=== PATIENT | male | born 1975 | race African-American/Black ===

== ENCOUNTER → 2016-11-03 | Outpatient (CLI) | payer MEDICAID, MEDICARE, OTHER ==
[2016-11-03 11:33] LABS: ALANINE AMINOTRANSFERASE 36 U/L (21-72); ALBUMIN 3.9 g/dL (3.5-5.0); ALKALINE PHOSPHATASE 139 U/L (38-126); ANION GAP 10 (5-19); ASPARTATE AMINO TRANSFERASE 21 U/L (17-59); BILIRUBIN,DIRECT 0.2 mg/dL (0.0-0.4); BILIRUBIN,TOTAL 0.8 mg/dL (0.2-1.3); BLOOD UREA NITROGEN 17 mg/dL (7-20); CALCIUM 9.8 mg/dL (8.4-10.2); CARBON DIOXIDE 32 mmol/L (22-30); CHLORIDE 97 mmol/L (98-107); CHOLESTEROL 140.22 mg/dL (0-200); CREATININE RESULT 1.07 mg/dL (0.52-1.25); Direct HDL 50 mg/dL (>40); GLUCOSE 260 mg/dL (75-110); POTASSIUM 4.2 mmol/L (3.6-5.0); TRIGLYCERIDES 75 mg/dL (<150)
[2016-11-03 11:44] LABS: DIRECT LDL 60 mg/dL (<100)
[2016-11-04 11:39] LABS: CREATININE URINE 85.3 mg/dL (Not Estab.); MICROALBUMIN URINE <3.0 ug/mL (Not Estab.)
== END ==
LOC: CCC 09:50
DX: I10 Essential (primary) hypertension (principal); E11.9 Type 2 diabetes mellitus without complications; E78.5 Hyperlipidemia, unspecified
CPT/HCPCS: 36415; 80053; 80061; 82043; 82570; 83036; 84443

== ENCOUNTER 2016-11-23 10:21 | Emergency (ER) | payer SELFPAY ==
[2016-11-23 10:28] VITALS: BP 133/79
--- NOTE | 2016-11-23 10:46 | ER Document Report ---
ED General - General Chief Complaint: Numbness of Arm Stated Complaint: PAIN/TINGLING LEFT ARM Time Seen by Provider: 11/23/16 10:30 Mode of Arrival: Ambulatory Information source: Patient Notes: This 41-year-old male patient comes emergency room complaining of pain in the left thumb going up the forearm tingling and burning. There is no particular injury. It is been going on for a few days. TRAVEL OUTSIDE OF THE [place] IN LAST 30 DAYS: No - Related Data Allergies/Adverse Reactions: bananas Allergy (Uncoded 11/23/16 10:29) Past Medical History - General Information source: Patient, [facility] Records - Social History Smoking Status: Never Smoker Cigarette use (# per day): No Chew tobacco use (# tins/day): No Smoking Education Provided: No Frequency of alcohol use: Rare Drug Abuse: None Occupation: Unemployed Lives with: Friend Family History: Reviewed & Not Pertinent Patient has suicidal ideation: No Patient has homicidal ideation: No - Past Medical History Cardiac Medical History: Reports: Hx Hypercholesterolemia, Hx Hypertension Endocrine Medical History: Reports: Hx Diabetes Mellitus Type 2 Renal/ Medical History: Reports: None Psychiatric Medical History: Reports: Hx Depression Past Surgical History: Reports: Hx Nose Surgery, Hx Orthopedic Surgery - rt leg infection - Immunizations Immunizations up to date: Yes Hx Diphtheria, Pertussis, Tetanus Vaccination: Yes Review of Systems - Review of Systems Constitutional: No symptoms reported EENT: No symptoms reported Cardiovascular: No symptoms reported Respiratory: No symptoms reported Gastrointestinal: No symptoms reported Genitourinary: No symptoms reported Musculoskeletal: See HPI Skin: No symptoms reported Hematologic/Lymphatic: No symptoms reported Neurological/Psychological: No symptoms reported Physical Exam - Vital signs Vitals: Temp Pulse Resp BP Pulse Ox 98.3 F 92 20 133/79 H 95 11/23/16 10:25 11/23/16 10:25 11/23/16 10:25 11/23/16 10:25 11/23/16 10:25 Interpretation: Normal - General General appearance: Appears well, Alert In distress: None - HEENT Head: Normocephalic, Atraumatic Eyes: Normal Pupils: PERRL - Respiratory Respiratory status: No respiratory distress - Cardiovascular Rhythm: Regular - Abdominal Inspection: Obese - Back Back: Normal - Extremities General upper extremity: Other - The left dorsal thumb extensor tendons are quite tender particularly at the wrist. Flexing the thumb, placing the wrist in ulnar deviation, and palpating the extensor tendon is quite painful consistent with a de Quervain's tenosynovitis. General lower extremity: Normal inspection - Neurological Neuro grossly intact: Yes - Psychological Associated symptoms: Normal affect, Normal mood - Skin Skin Temperature: Warm Skin Moisture: Dry Skin Color: Normal Course - Re-evaluation Re-evalutation: 11/23/16 10:51 The thumb spica splint was placed on the left upper extremity by the PCT. It was examined by me. It fits well. Patient reports it does provide comfort and stability. - Vital Signs Vital signs: Temp Pulse Resp BP Pulse Ox 98.3 F 92 20 133/79 H 95 11/23/16 10:25 11/23/16 10:25 11/23/16 10:25 11/23/16 10:25 11/23/16 10:25 Discharge - Discharge Clinical Impression: De Quervain's tenosynovitis, left Additional Instructions: Tendonitis: The pain you are having is due to tendonitis -- an inflammation around a muscle tendon. It's usually caused by overuse or repeated minor injuries ( strains) of the tendon. Tendonitis can take two to four weeks to heal. In fact, you may actually worsen for a few days despite treatment. Tendonitis is usually treated with rest, local heat, and antiinflammatory medication. Sometimes cold packs are recommended if the tendonitis has just started. If the pain is severe or prolonged, cortisone injections may be required. Call the doctor if pain or swelling become severe, if new discoloration or redness appears, or if numbness is noted. You have a form of tendinitis called de Quervain's tenosynovitis. Treatment is to immobilize the thumb and wrist to prevent stretching and straining the inflamed tendon. NSAIDs such as Motrin or Aleve are taken to reduce inflammation. Follow-up with Dr. Benito in the next 1-2 weeks if not improving.
== END 2016-11-23 10:51 | disposition home or self-care (01) ==
LOC: ER 10:21
PROC: 2W3MX1Z Immobilization of Left Lower Extremity using Splint (ICD-10-PCS; principal; 2016-11-23)
DX: M65.4 Radial styloid tenosynovitis [de Quervain] (principal); E11.9 Type 2 diabetes mellitus without complications; I10 Essential (primary) hypertension
CPT/HCPCS: 99283

== ENCOUNTER → 2017-11-04 | Outpatient (CLI) | payer OTHER ==
[2017-11-04 09:48] LABS: ABSOLUTE BASOPHILS # (AUTO) 0.1 10^3/uL (0.0-0.2); ABSOLUTE EOSINOPHILS # (AUTO) 0.2 10^3/uL (0.0-0.6); ABSOLUTE LYMPHOCYTES (AUTO) 3.1 10^3/uL (0.5-4.7); ABSOLUTE MONOCYTES (AUTO) 0.5 10^3/uL (0.1-1.4); ABSOLUTE NEUT (AUTO) 4.8 10^3/uL (1.7-8.2); BASOPHILS % (AUTO) 0.7 % (0-2); EOSINOPHILS % (AUTO) 1.8 % (0-6); HEMATOCRIT 40.8 % (37.9-51.0); HEMOGLOBIN 13.7 g/dL (13.5-17.0); MEAN CORPUSCULAR HEMOGLOBIN 28.8 pg (27.0-33.4); MEAN CORPUSCULAR HGB CONC 33.6 g/dL (32.0-36.0); MEAN CORPUSCULAR VOLUME 86 fl (80-97); MONOCYTES % (AUTO) 5.9 % (3-13); PLATELET COUNT 305 10^3/uL (150-450); RED BLOOD COUNT 4.77 10^6/uL (4.35-5.55); RED CELL DISTRIBUTION WIDTH 14.9 % (11.5-14.0); SEGMENTED NEUTROPHILS % (AUTO) 55.6 % (42-78); TOTAL CELLS COUNTED % (AUTO) 100 %; WHITE BLOOD COUNT 8.6 10^3/uL (4.0-10.5)
[2017-11-04 10:13] LABS: ALANINE AMINOTRANSFERASE 31 U/L (21-72); ALBUMIN 4.5 g/dL (3.5-5.0); ALKALINE PHOSPHATASE 138 U/L (38-126); ANION GAP 11 (5-19); ASPARTATE AMINO TRANSFERASE 23 U/L (17-59); BILIRUBIN,DIRECT 0.3 mg/dL (0.0-0.4); BILIRUBIN,TOTAL 0.7 mg/dL (0.2-1.3); BLOOD UREA NITROGEN 19 mg/dL (7-20); CALCIUM 10.2 mg/dL (8.4-10.2); CARBON DIOXIDE 35 mmol/L (22-30); CHLORIDE 98 mmol/L (98-107); CHOLESTEROL 158.36 mg/dL (0-200); GLUCOSE 179 mg/dL (75-110); POTASSIUM 3.6 mmol/L (3.6-5.0); SODIUM 144.2 mmol/L (137-145); TOTAL PROTEIN 7.9 g/dL (6.3-8.2); TRIGLYCERIDES 89 mg/dL (<150); URIC ACID 3.6 mg/dL (3.5-8.5)
[2017-11-04 10:24] LABS: DIRECT LDL 74 mg/dL (<100)
== END ==
LOC: CCC 08:53
DX: I10 Essential (primary) hypertension (principal); J45.901 Unspecified asthma with (acute) exacerbation; E66.01 Morbid (severe) obesity due to excess calories
CPT/HCPCS: 36415; 80053; 80061; 83036; 84443; 84550; 85025

== ENCOUNTER → 2018-01-04 | Outpatient (CLI) | payer OTHER ==
--- NOTE | 2018-01-04 08:58 | RADIOLOGY REPORT (SQ) ---
EXAM DESCRIPTION: U/S ABDOMEN COMPLETE W/O DOP COMPLETED DATE/TIME: 01/04/2018 8:28 am REASON FOR STUDY: RUQ ABDOMINAL PAIN R10.11 RIGHT UPPER QUADRANT PAIN COMPARISON: CT abdomen and pelvis examination dated 02/17/2013 TECHNIQUE: Dynamic and static grayscale images acquired of the abdomen and recorded on PACS. Additio nal selected color Doppler and spectral images recorded. LIMITATIONS: Limited study due to body habitus. FINDINGS: PANCREAS: No masses. Visualized pancreatic duct normal caliber. LIVER: The liver measures 20.2 cm in length, hepatomegaly. Fatty liver. LIVER VASCULATURE: Normal directional flow of the main portal vein and hepatic veins. GALLBLADDER: No stones. The gallbladder wall measures 2.7 mm, normal wall thickness. No pericholecys tic fluid. ULTRASOUND-DETECTED BARNES'S SIGN: Negative. INTRAHEPATIC DUCTS AND COMMON DUCT: CBD measures 4.7 mm in diameter, normal. The intrahepatic ducts normal caliber. No filling defects. INFERIOR VENA CAVA: Normal flow. AORTA: The proximal and distal abdominal aorta are obscured by overlying bowel gas. RIGHT KIDNEY: The right kidney measures 12. Cm in length, normal Normal size. Normal echogenicity. No solid or suspicious masses. No hydronephrosis. No calcifications. LEFT KIDNEY: Left kidney measures 11.4 cm in length, normal size. Normal echogenicity. No solid or suspicious masses. No hydronephrosis. No calcifications. SPLEEN: The spleen measures 10.2 cm in length, normal size. No solid masses. PERITONEAL AND PLEURAL SPACES: No ascites or effusions. OTHER: No other significant finding. IMPRESSION: 1 Fatty liver. Hepatomegaly. 2 The abdominal aorta is partially obscured by overlying bowel gas. TECHNICAL DOCUMENTATION: JOB ID: [id number]- All Rights Reserved Reading location - IP/workstation name: [email or web address]
== END ==
LOC: RAD 08:02
DX: R10.11 Right upper quadrant pain (principal); K76.0 Fatty (change of) liver, not elsewhere classified; R16.0 Hepatomegaly, not elsewhere classified
CPT/HCPCS: 76700

== ENCOUNTER 2018-05-09 11:01 | Emergency (ER) | payer OTHER ==
[2018-05-09 11:09] VITALS: BP 121/76
[2018-05-09] MEDS ORDERED: LIDOCAINE 5% (700 MG) TRANSDERMAL ADH..PATCH TP ONE (11:45)
[2018-05-09] MEDS ORDERED: CYCLOBENZAPRINE HCL 10 MG TABLET PO ONE (11:45)
[2018-05-09] MEDS ORDERED: KETOROLAC TROMETHAMINE 60 MG/2 ML SDV IM ONE (11:45)
--- NOTE | 2018-05-09 12:05 | ER Document Report ---
HPI - HPI Patient complains to provider of: Toothache Pain Level: 3 Context: Patient is a morbidly obese 43-year-old male presenting to the emergency department for a toothache and lower back pain. Patient states tooth #9 is the one that has been causing him problems over the last couple of days. Patient states he has tried to make an appointment at the [facility] but was unable to make an appointment. Patient also states he has a flareup of his chronic lower back pain. Patient states for the last week he has had increased pain lumbar region paraspinally. Patient denies any injuries to the area. Patient denies any numbness or tingling in any extremity, urinary retention or loss of bowel or bladder. Past medical history: Diabetes, hypertension, asthma, GERD, sleep apnea Medications: NovoLog, Humulin, lisinopril Allergies: Bananas Patient denies cigarette smoking, illicit drug use, EtOH use. - CONSTITUTIONAL Constitutional: DENIES: Fever, Chills - EENT EENT: DENIES: Sore Throat, Ear Pain, Eye problems - NEURO Neurology: DENIES: Headache, Weakness, Vision blurred, Dizzinesss / Vertigo - CARDIOVASCULAR Cardiovascular: DENIES: Chest pain - RESPIRATORY Respiratory: DENIES: Trouble Breathing, Coughing - GASTROINTESTINAL Gastrointestinal: DENIES: Abdominal Pain, Black / Bloody Stools - URINARY Urinary: DENIES: Dysuria, Urgency, Frequency - MUSCULOSKELETAL Musculoskeletal: DENIES: Extremity pain Past Medical History - General Information source: Patient - Social History Smoking Status: Never Smoker Chew tobacco use (# tins/day): No Frequency of alcohol use: None Drug Abuse: None Lives with: Family Family History: Reviewed & Not Pertinent Patient has suicidal ideation: No Patient has homicidal ideation: No - Past Medical History Cardiac Medical History: Reports: Hx Hypercholesterolemia, Hx Hypertension Endocrine Medical History: Reports: Hx Diabetes Mellitus Type 2 Renal/ Medical History: Denies: Hx Peritoneal Dialysis Psychiatric Medical History: Reports: Hx Depression Past Surgical History: Reports: Hx Nose Surgery, Hx Orthopedic Surgery - rt leg infection - Immunizations Immunizations up to date: Yes Hx Diphtheria, Pertussis, Tetanus Vaccination: Yes Vertical Provider Document - CONSTITUTIONAL Agree With Documented VS: Yes Notes: GENERAL: Morbidly obese alert, interacts well. No acute distress. Watching TV during HPI questioning. HEAD: Normocephalic, atraumatic. EYES: Pupils equal, round, and reactive to light. Extraocular movements intact. ENT: Oral mucosa moist, tongue midline. Patient missing all of his upper front teeth except for tooth #9 which is severely decayed. Minor erythema around the gumline, no fluctuant or indurated areas noted. no ludwigs angina NECK: Full range of motion. Supple. Trachea midline. LUNGS: Clear to auscultation bilaterally, no wheezes, rales, or rhonchi. No respiratory distress. HEART: Regular rate and rhythm. No murmur ABDOMEN: Soft, non-tender. Non-distended. Bowel sounds present in all 4 quadrants. EXTREMITIES: Moves all 4 extremities spontaneously. No edema, normal radial and dorsalis pedis pulses bilaterally. No cyanosis. BACK: no cervical, thoracic, lumbar midline tenderness. No saddle anesthesia, normal distal neurovascular exam. Paraspinal lumbar pain more so upon palpation. Pain does not radiate to either buttocks or lower extremities. No erythema or ecchymosis noted. NEUROLOGICAL: Alert and oriented x3. Normal speech. cranial nerves II through XII grossly intact PSYCH: Normal affect, normal mood. SKIN: Warm, dry, normal turgor. No rashes or lesions noted. - INFECTION CONTROL TRAVEL OUTSIDE OF THE [place] IN LAST 30 DAYS: No Course - Re-evaluation Re-evalutation: 05/09/18 12:07 Discussed need for oral antibiotics for tooth at this time. Also discussed treatments for back pain at home. Will discharge home with Flexeril, penicillin , discussed [id number] pain management for back pain. Patient continues to be more interested in the TV then speaking with me as far as discharge instructions. - Vital Signs Vital signs: Temp Pulse Resp BP Pulse Ox 98.2 F 95 18 121/76 97 05/09/18 11:08 05/09/18 11:08 05/09/18 11:08 05/09/18 11:08 05/09/18 11:08 Discharge - Discharge Clinical Impression: Toothache, Dental caries Lower back pain Qualifiers: Chronicity: chronic Back pain laterality: bilateral Sciatica presence: without sciatica Qualified Code(s): M54.5 - Low back pain; G89.29 - Other chronic pain; G89.29 - Other chronic pain Condition: Stable Disposition: HOME, SELF-CARE Instructions: [facility], Penicillin V K ([facility]), Toothache ([facility]), Chronic Back Pain ([facility]) Additional Instructions: As we discussed you have been seen in the emergency room for a toothache and lower back pain. Please take prescription medications as prescribed. Please follow-up with your primary care provider in the next 24-48 hours. [facility]'s phone number is within this packet so you can see a dentist. Please return to the emergency room for any other concerning symptoms. Prescriptions: Cyclobenzaprine HCl [Flexeril 10 mg Tablet] 10 mg PO TIDP PRN #15 tab PRN Reason: Penicillin V Potassium [Penicillin Vk 500 mg Tablet] 500 mg PO BID #20 tablet Referrals: [facility] [Primary Care Provider] - Follow up as needed
== END 2018-05-09 12:21 | disposition home or self-care (01) ==
LOC: ER 11:01
DX: K02.9 Dental caries, unspecified (principal); K08.89 Other specified disorders of teeth and supporting structures; G89.29 Other chronic pain; M54.5 Low back pain; E11.9 Type 2 diabetes mellitus without complications; I10 Essential (primary) hypertension; J45.909 Unspecified asthma, uncomplicated; E66.01 Morbid (severe) obesity due to excess calories
CPT/HCPCS: 99282; 96372; J1885

== ENCOUNTER 2018-05-31 11:05 | Emergency (ER) | payer OTHER ==
--- NOTE | 2018-05-31 11:47 | ER Document Report ---
ED Medical Screen (RME) - General Chief Complaint: Skin Sore(s) Stated Complaint: sore on bottom of foot Time Seen by Provider: 05/31/18 11:40 Mode of Arrival: Wheelchair Information source: Patient Notes: Patient presents emergency department with complaints of left foot pain due to a sore on the bottom of his foot. Reports started hurting the Thursday. Patient is a diabetic. No open wounds noted. Denies other symptoms such as fever vomiting diarrhea I have greeted and performed a rapid initial assessment of this patient. A comprehensive ED assessment and evaluation of the patient, analysis of test results and completion of the medical decision making process will be conducted by additional ED providers. TRAVEL OUTSIDE OF THE [place] IN LAST 30 DAYS: No - Related Data Allergies/Adverse Reactions: bananas Allergy (Uncoded 05/31/18 11:06) Past Medical History - Past Medical History Cardiac Medical History: Reports: Hx Hypercholesterolemia, Hx Hypertension Endocrine Medical History: Reports: Hx Diabetes Mellitus Type 2 Renal/ Medical History: Denies: Hx Peritoneal Dialysis Psychiatric Medical History: Reports: Hx Depression Past Surgical History: Reports: Hx Nose Surgery, Hx Orthopedic Surgery - rt leg infection - Immunizations Immunizations up to date: Yes Hx Diphtheria, Pertussis, Tetanus Vaccination: Yes Physical Exam - Vital signs Vitals: Temp Pulse Resp BP Pulse Ox 98.6 F 98 18 129/76 H 96 05/31/18 11:13 05/31/18 11:13 05/31/18 11:13 05/31/18 11:13 05/31/18 11:13 Course - Vital Signs Vital signs: Temp Pulse Resp BP Pulse Ox 98.6 F 98 18 129/76 H 96 05/31/18 11:13 05/31/18 11:13 05/31/18 11:13 05/31/18 11:13 05/31/18 11:13 Doctor's Discharge - Discharge [facility]: [facility] [[facility]] - Follow up as needed
--- NOTE | 2018-05-31 12:52 | RADIOLOGY REPORT (SQ) ---
EXAM DESCRIPTION: FOOT LEFT COMPLETE COMPLETED DATE/TIME: 05/31/2018 12:19 pm REASON FOR STUDY: sore on bottom of foot COMPARISON: None. NUMBER OF VIEWS: Three views. TECHNIQUE: AP, lateral and oblique radiographic images acquired of the left foot. LIMITATIONS: None. FINDINGS: MINERALIZATION: Normal. BONES: No acute fracture or dislocation. No worrisome bone lesions. JOINTS: No effusions. SOFT TISSUES: Diffuse forefoot soft tissue swelling. No foreign body. OTHER: No other significant finding. IMPRESSION: Diffuse forefoot soft tissue swelling. No soft tissue gas or radiopaque foreign body. No underlying fracture TECHNICAL DOCUMENTATION: JOB ID: [id number] [employer]- All Rights Reserved Reading location - IP/workstation name: [email or web address]
--- NOTE | 2018-05-31 14:19 | ER Document Report ---
ED Medical Screen (RME) - General Chief Complaint: Skin Sore(s) Stated Complaint: sore on bottom of foot Time Seen by Provider: 05/31/18 11:40 Mode of Arrival: Wheelchair Information source: Patient Notes: This is a 43-year-old man with a history of insulin requiring diabetes and hypertension who presents to the emergency room with complaints of a sore area on the bottom of the left heel. Patient denies any fever, chills, nausea vomiting. He does report that he thought there was some drainage from the wound. TRAVEL OUTSIDE OF THE [place] IN LAST 30 DAYS: No - HPI Onset: Last week Onset/Duration: Gradual Quality of pain: Dull Severity: Mild Pain Level: 1 Associated Symptoms: denies: Chest pain, Fever, Shortness of breath Exacerbated by: Walking Relieved by: Denies Similar symptoms previously: No Recently seen / treated by doctor: No - Related Data Smoking: Non-smoker Frequency of alcohol use: None Drug Abuse: None Allergies/Adverse Reactions: bananas Allergy (Uncoded 05/31/18 11:06) Past Medical History - General Information source: Patient - Social History Cigarette use (# per day): No Frequency of alcohol use: None Drug Abuse: None Lives with: Family Family history: None - Past Medical History Cardiac Medical History: Reports: Hx Hypercholesterolemia, Hx Hypertension Pulmonary Medical History: Reports: Hx Asthma Comment Only: Hx COPD - sleep apnea, CPAP at night Endocrine Medical History: Reports: Hx Diabetes Mellitus Type 2 Renal/ Medical History: Denies: Hx Peritoneal Dialysis Psychiatric Medical History: Reports: Hx Depression Past Surgical History: Reports: Hx Nose Surgery, Hx Orthopedic Surgery - rt leg infection - Immunizations Immunizations up to date: Yes Hx Diphtheria, Pertussis, Tetanus Vaccination: Yes Review of Systems - Review of Systems Constitutional: denies: Chills, Fever EENT: No symptoms reported Cardiovascular: No symptoms reported Respiratory: No symptoms reported Gastrointestinal: No symptoms reported Genitourinary: No symptoms reported Male Genitourinary: No symptoms reported Musculoskeletal: See HPI Skin: See HPI Hematologic/Lymphatic: No symptoms reported Neurological/Psychological: No symptoms reported Physical Exam - Vital signs Vitals: Temp Pulse Resp BP Pulse Ox 98.6 F 98 18 129/76 H 96 05/31/18 11:13 05/31/18 11:13 05/31/18 11:13 05/31/18 11:13 05/31/18 11:13 Notes: Physical exam: GENERAL: Patient is alert and oriented x3, afebrile, nontoxic-appearing. The patient appears well. HEAD: Atraumatic, normocephalic. EYES: Pupils equal round and reactive to light, extraocular movements intact, sclera anicteric, conjunctiva are normal. ENT: Moist mucous membranes. NECK: Normal range of motion, supple without obvious mass EXTREMITIES: Left foot: Small area of tenderness over the left heel without fluctuance or evidence of abscess. There is no swelling over the foot or erythema over the foot. NEUROLOGICAL: Cranial nerves II through XII grossly intact. Normal speech, moving all extremities. PSYCH: Normal mood, normal affect. SKIN: Patient has 2 cm area of tenderness along the left heel. There is no obvious fluctuance or evidence of abscess. There is no drainage. Course - Re-evaluation Re-evalutation: 05/31/18 14:55 I had a long conversation with the patient and his family member: The patient has no evidence of fever, sepsis or cellulitis. Given his underlying comorbidities (morbid obesity, hypertension, insulin requiring diabetes), I am concerned that he is developing a diabetic ulcer. While I do not see any discharge or overlying cellulitis, given his immune compromise I will start him on any sent. He does have an appointment with Dr. Austin tomorrow. Additionally, I want him to follow-up in the wound center. - Vital Signs Vital signs: Temp Pulse Resp BP Pulse Ox 99.2 F 81 20 126/76 H 98 05/31/18 14:24 05/31/18 14:24 05/31/18 14:24 05/31/18 14:24 05/31/18 14:24 - Diagnostic Test Radiology reviewed: Image reviewed, Reports reviewed - X-rays were interpreted as soft tissue swelling over the forefoot. There is no evidence of foreign body. The patient's tenderness is actually over the heel. The foot has no evidence of erythema or swelling clinically. Doctor's Discharge - Discharge Clinical Impression: Diabetic ulcer Condition: Stable Disposition: HOME, SELF-CARE Additional Instructions: As we discussed, want you to keep a close eye on that area of the foot. Continue with the ointment and cleaning daily. Take the antibiotics as prescribed. Take the pain medicine as prescribed. Call the wound clinic: Tell them he was seen in the ER and the ER wanted you seen in the next week for evaluation of the wound. Follow-up with Dr. Austin as planned tomorrow. Return to the emergency room for increasing pain, fever (temperature greater than 100.5), any development of erythema or any concerns that the wound is getting worse. Prescriptions: Oxycodone HCl 5 mg PO Q6HP PRN #20 capsule PRN Reason: Ciprofloxacin HCl [Cipro 500 mg Tablet] 500 mg PO BID #20 tablet [facility] [NO LOCAL MD] - Follow up as needed CHLOE MORGAN MD [ACTIVE STAFF] - Follow up as needed (I want you to call the wound clinic: Tell them you were seen in the and the ER doctor wanted you seen in the wound clinic.)
[2018-05-31 14:36] VITALS: BP 126/76
== END 2018-05-31 14:27 | disposition home or self-care (01) ==
LOC: ER 11:05
DX: E11.621 Type 2 diabetes mellitus with foot ulcer (principal); L97.429 Non-pressure chronic ulcer of left heel and midfoot with unspecified severity; I10 Essential (primary) hypertension; Z79.4 Long term (current) use of insulin; J45.909 Unspecified asthma, uncomplicated
CPT/HCPCS: 99283

== ENCOUNTER → 2018-06-14 | Outpatient (CLI) | payer OTHER ==
[2018-06-14 10:55] LABS: ABSOLUTE BASOPHILS # (AUTO) 0.1 10^3/uL (0.0-0.2); ABSOLUTE EOSINOPHILS # (AUTO) 0.1 10^3/uL (0.0-0.6); ABSOLUTE LYMPHOCYTES (AUTO) 2.5 10^3/uL (0.5-4.7); ABSOLUTE MONOCYTES (AUTO) 0.6 10^3/uL (0.1-1.4); ABSOLUTE NEUT (AUTO) 8.7 10^3/uL (1.7-8.2); BASOPHILS % (AUTO) 0.7 % (0-2); EOSINOPHILS % (AUTO) 1.2 % (0-6); HEMATOCRIT 41.4 % (37.9-51.0); HEMOGLOBIN 13.7 g/dL (13.5-17.0); LYMPHOCYTES % (AUTO) 20.7 % (13-45); MEAN CORPUSCULAR HGB CONC 33.1 g/dL (32.0-36.0); MEAN CORPUSCULAR VOLUME 88 fl (80-97); MONOCYTES % (AUTO) 5.1 % (3-13); PLATELET COUNT 337 10^3/uL (150-450); RED BLOOD COUNT 4.73 10^6/uL (4.35-5.55); RED CELL DISTRIBUTION WIDTH 14.4 % (11.5-14.0); SEGMENTED NEUTROPHILS % (AUTO) 72.3 % (42-78); TOTAL CELLS COUNTED % (AUTO) 100 %; WHITE BLOOD COUNT 12.1 10^3/uL (4.0-10.5)
[2018-06-14 11:25] LABS: ALANINE AMINOTRANSFERASE 17 U/L (21-72); ALBUMIN 4.2 g/dL (3.5-5.0); ALKALINE PHOSPHATASE 128 U/L (38-126); ANION GAP 9 (5-19); ASPARTATE AMINO TRANSFERASE 20 U/L (17-59); BILIRUBIN,DIRECT 0.2 mg/dL (0.0-0.4); BILIRUBIN,TOTAL 0.7 mg/dL (0.2-1.3); BLOOD UREA NITROGEN 15 mg/dL (7-20); CALCIUM 9.9 mg/dL (8.4-10.2); CARBON DIOXIDE 29 mmol/L (22-30); CHLORIDE 102 mmol/L (98-107); GLUCOSE 147 mg/dL (75-110); POTASSIUM 4.1 mmol/L (3.6-5.0); SODIUM 140.3 mmol/L (137-145); TOTAL PROTEIN 7.3 g/dL (6.3-8.2)
== END ==
LOC: WC 10:20
PROVIDERS: ATTEND Nurse Practitioner
DX: E11.621 Type 2 diabetes mellitus with foot ulcer (principal); L97.422 Non-pressure chronic ulcer of left heel and midfoot with fat layer exposed
CPT/HCPCS: 36415; 80053; 83036; 85025

== ENCOUNTER 2018-06-16 07:58 | Emergency (ER) | payer OTHER ==
[2018-06-16] MEDS ORDERED: OXYCODONE-ACETAMINOPHEN 5-325 MG TABLET PO ONE (08:32)
[2018-06-16] MEDS ORDERED: SULFAMETHOXAZOLE/TRIMETHOPRIM 800-160 MG TABLET PO ONE (08:32)
[2018-06-16] MEDS ORDERED: CEPHALEXIN 500 MG CAPSULE PO ONE (08:32)
--- NOTE | 2018-06-16 08:33 | ER Document Report ---
HPI - HPI Patient complains to provider of: Rash on leg Time Seen by Provider: 06/16/18 08:20 Onset: Other - 5 days Quality of pain: Achy Pain Level: 3 Context: Patient presents complaining of pain with rash to the right leg for the past 5 days. Patient denies any fever or injury. Patient denies any nausea or vomiting. Associated Symptoms: Other - Right leg pain. denies: Fever Exacerbated by: Denies Relieved by: Denies Similar symptoms previously: No Recently seen / treated by doctor: No - ROS ROS below otherwise negative: Yes Systems Reviewed and Negative: Yes All other systems reviewed and negative - CONSTITUTIONAL Constitutional: DENIES: Fever - NEURO Neurology: DENIES: Weakness - GASTROINTESTINAL Gastrointestinal: DENIES: Nausea, Patient vomiting - REPRODUCTIVE Reproductive: DENIES: : - MUSCULOSKELETAL Musculoskeletal: REPORTS: Extremity pain - DERM Skin Color: Erythema Skin Problems: Rash Past Medical History - General Information source: Patient, Relative - Social History Smoking Status: Never Smoker Chew tobacco use (# tins/day): No Frequency of alcohol use: None Drug Abuse: None Occupation: None Lives with: Family Family History: Reviewed & Not Pertinent Patient has suicidal ideation: No Patient has homicidal ideation: No - Past Medical History Cardiac Medical History: Reports: Hx Hypercholesterolemia, Hx Hypertension Pulmonary Medical History: Reports: Hx Asthma Comment Only: Hx COPD - sleep apnea, CPAP at night Endocrine Medical History: Reports: Hx Diabetes Mellitus Type 2 Renal/ Medical History: Denies: Hx Peritoneal Dialysis Psychiatric Medical History: Reports: Hx Depression Past Surgical History: Reports: Hx Nose Surgery, Hx Orthopedic Surgery - rt leg infection - Immunizations Immunizations up to date: Yes Hx Diphtheria, Pertussis, Tetanus Vaccination: Yes Vertical Provider Document - CONSTITUTIONAL Agree With Documented VS: Yes Exam Limitations: No Limitations General Appearance: WD/WN, No Apparent Distress, Obese - morbidly - INFECTION CONTROL TRAVEL OUTSIDE OF THE [place] IN LAST 30 DAYS: No - HEENT HEENT: Atraumatic, Normocephalic - NECK Neck: Normal Inspection - RESPIRATORY Respiratory: Breath Sounds Normal, No Respiratory Distress - CARDIOVASCULAR Cardiovascular: Regular Rate, Regular Rhythm - BACK Back: Normal Inspection - MUSCULOSKELETAL/EXTREMETIES Musculoskeletal/Extremeties: MAEW, Tender - Tenderness to medial aspect of right upper thigh - NEURO Level of Consciousness: Awake, Alert, Appropriate Motor/Sensory: No Motor Deficit, No Sensory Deficit - DERM Integumentary: Warm, Abscess - Tender indurated lesion to right medial thigh with surrounding erythema concerning for abscess Course - Re-evaluation Re-evalutation: 06/16/18 Patient with abscess to the right medial thigh with cellulitis. Patient nontoxic in appearance, no concern for sepsis at this time. Area of erythema was marked with a skin marker and patient was advised to return for any worsening of symptoms. - Vital Signs Vital signs: Temp Pulse Resp BP Pulse Ox 98.3 F 97 18 111/70 96 06/16/18 08:02 06/16/18 08:02 06/16/18 08:02 06/16/18 08:02 06/16/18 08:02 Procedures - Incision and Drainage Right Thigh Type: Simple Anesthetic type: 1% Lidocaine Blade size: 11 I&D procedure: Shurclens applied Incision Method: Incision made by scalpel Amount/type of drainage: small amount of purulent drainage Adult Front & Back picture: 1 - Erythema 2 - Indurated area with central papular crusted lesion Discharge - Discharge Clinical Impression: Abscess, Encounter for incision and drainage procedure Cellulitis Qualifiers: Site of cellulitis: extremity Site of cellulitis of extremity: lower extremity Laterality: right Qualified Code(s): L03.115 - Cellulitis of right lower limb Condition: Stable Disposition: HOME, SELF-CARE Instructions: Abscess ([facility]), Cephalexin ([facility]), Oral Narcotic Medication ([facility]), Post Incision and Drainage, Trimethoprim-Sulfa ([facility]) Additional Instructions: Return immediately for any new or worsening symptoms Followup with your primary care provider, call tomorrow to make a followup appointment Prescriptions: Cephalexin Monohydrate [Keflex 500 mg Capsule] 500 mg PO Q6H 7 Days capsule Oxycodone HCl/Acetaminophen [Percocet 5-325 mg Tablet] 1 tab PO ASDIR PRN #10 tablet PRN Reason: Sulfamethoxazole/Trimethoprim [Bactrim Ds Tablet] 1 each PO BID #20 tablet Referrals: SHASHI OVERTON PROGRAM AIDE [[employer]IED HEALTH PROFESSIONAL] - Follow up as needed
[2018-06-16 09:46] VITALS: BP 123/67
== END 2018-06-16 09:46 | disposition home or self-care (01) ==
LOC: ER 07:58
DX: L02.415 Cutaneous abscess of right lower limb (principal); L03.115 Cellulitis of right lower limb; E11.9 Type 2 diabetes mellitus without complications; I10 Essential (primary) hypertension; J45.909 Unspecified asthma, uncomplicated; E66.01 Morbid (severe) obesity due to excess calories
CPT/HCPCS: 99283

== ENCOUNTER → 2018-06-24 | Outpatient (CLI) | payer OTHER ==
--- NOTE | 2018-06-24 15:26 | XCELERA REPORT ---
[address] [address] Lower Extremity Arterial Evaluation Name: SCOTTY BEARDEN JR Age: 43 yrs Gender: Male : 1975 Patient Status: Preadmit Patient Location: Study Date: 06/24/2018 01:02 PM Procedure: A color flow and duplex scan of the lower extremity arteries was performed bilaterally with velocity and waveform anaylsis. Ankle brachial indicies performed. Reason For Study: ULCER Ordering Physician: CHLOE MORGAN Performed By: Yimi López Measurements and Calculations Right Left METAL MACHINE OPERATOR PSV 106.1 91.5 cm/sec Prox PFA PSV -68.3 -60.1 cm/sec Prox Pop A PSV 54.6 46.2 cm/sec Dist SEAMUS PSV 78.6 73.1 cm/sec Dist OPERATIONS EXECUTIVE PSV 88.4 55.0 cm/sec Adilson Pedis PSV -63.2 -61.7 cm/sec Right Side Arterial Evaluation Elevated velocity in the Dorsalis Pedis, with triphasic waveform, questionable for greater than 50% stenosis. Otherwise normal velocity and triphasic waveforms noted from the Common Femoral artery to the infrageniculate vessels . Ankle Brachial index 1.00. Left Side Arterial Evaluation Normal velocity and triphasic waveforms noted from the Common Femoral artery to the infrageniculate vessels . Ankle Brachial index 1.11. Interpretation Summary Mild hemodynamically significant lesions in the right lower extremity only, on duplex imaging, at rest. No hemodynamically significant lesions in the left lower extremity only, on duplex imaging, at rest. : CHLOE MORGAN > Chloe Morgan
== END ==
LOC: SP 15:51
PROVIDERS: ATTEND Surgery
DX: E11.621 Type 2 diabetes mellitus with foot ulcer (principal); L97.422 Non-pressure chronic ulcer of left heel and midfoot with fat layer exposed
CPT/HCPCS: 93922; 93925

== ENCOUNTER 2018-07-31 04:10 | Emergency (ER) | payer OTHER ==
--- NOTE | 2018-07-31 07:58 | ER Document Report ---
ED General - General Chief Complaint: Skin Problem Stated Complaint: LEG ARM PAIN Time Seen by Provider: 07/31/18 07:13 Primary Care Provider: KURT PARKS MD [Primary Care Provider] - Follow up as needed Notes: Pleasant 43-year-old male with insulin-dependent diabetes mellitus and hypertension presents to the emergency department for multiple abscesses. He was seen in May for abscess on his right proximal anteromedial thigh and it resolved. He currently is complaining of an abscess in his left antecubital area in the crease and his left proximal anterior thigh that started about a week ago. Patient said that he has had a couple in the past month that have resolved on their own. Patient states that he noticed the one on his thigh when he was washing and he scratched it and there was purulent discharge from it. Patient denies fevers, chills, nausea, infectious symptoms. Patient states that his blood sugars are mostly under control. Patient was recently seen here and diagnosed with diabetic foot ulcers. He is being followed by the wound clinic. TRAVEL OUTSIDE OF THE [place] IN LAST 30 DAYS: No - Related Data Allergies/Adverse Reactions: bananas Allergy (Uncoded 06/16/18 08:18) Past Medical History - Social History Smoking Status: Unknown if Ever Smoked Family History: Reviewed & Not Pertinent Patient has suicidal ideation: No Patient has homicidal ideation: No - Past Medical History Cardiac Medical History: Reports: Hx Hypercholesterolemia, Hx Hypertension Pulmonary Medical History: Reports: Hx Asthma Comment Only: Hx COPD - sleep apnea, CPAP at night Endocrine Medical History: Reports: Hx Diabetes Mellitus Type 2 Renal/ Medical History: Denies: Hx Peritoneal Dialysis Psychiatric Medical History: Reports: Hx Depression Past Surgical History: Reports: Hx Nose Surgery, Hx Orthopedic Surgery - rt leg infection - Immunizations Immunizations up to date: Yes Hx Diphtheria, Pertussis, Tetanus Vaccination: Yes Review of Systems - Review of Systems Constitutional: See HPI EENT: No symptoms reported Cardiovascular: No symptoms reported Respiratory: No symptoms reported Gastrointestinal: See HPI Genitourinary: No symptoms reported Male Genitourinary: No symptoms reported Musculoskeletal: No symptoms reported Skin: See HPI Hematologic/Lymphatic: No symptoms reported Neurological/Psychological: No symptoms reported Physical Exam - Vital signs Vitals: Temp Pulse Resp BP Pulse Ox 98.9 F 84 16 137/77 H 96 07/31/18 04:18 07/31/18 04:18 07/31/18 04:18 07/31/18 04:18 07/31/18 04:18 - Notes Notes: PHYSICAL EXAMINATION: Reviewed vital signs and charting by RN GENERAL: Alert, interacts well. No acute distress. HEAD: Normocephalic, atraumatic. EYES: Pupils equal, round. Extraocular movements intact. ENT: Oral mucosa moist. NECK: Full range of motion. Trachea midline. LUNGS: Clear to auscultation bilaterally, no wheezes, rales, or rhonchi. No respiratory distress. HEART: Regular rate and rhythm. No murmur ABDOMEN: Obese abdomen, soft, non-tender. Non-distended. Bowel sounds present in all 4 quadrants. EXTREMITIES: Moves all 4 extremities spontaneously. No edema, No cyanosis. NEUROLOGICAL: Alert and oriented. Normal speech. PSYCH: Normal affect, normal mood. SKIN: Warm, dry, normal turgor. Left antecubital area in the crease small area indurated with small scab with area of discharge, after de-josemanuel with an 18- gauge needle scant amount of purulent discharge expressed. Left and proximal anterior thigh with large area of induration approximately 3 cm x 3 cm with sma ll area of fluctuance. Able to express very small amount of serosanguineous fluid. No evidence of erythema surrounding the abscesses. Course - Re-evaluation Re-evalutation: 07/31/18 07:58 Pleasant 43-year-old male with insulin-dependent diabetes and history of abscess is seen by the wound clinic presents for 2 abscesses. No evidence of erythema around the site. Look at the abscesses with ultrasound and saw no areas with any fluid pockets at all. At this point I cannot visualize any drainable point and will put the patient on antibiotics for cellulitis with strict, close follow-up with wound clinic. I will also marked the cellulitis on the leg with a skin pen. 07/31/18 08:09 - Vital Signs Vital signs: Temp Pulse Resp BP Pulse Ox 98.9 F 84 16 137/77 H 96 07/31/18 04:18 07/31/18 04:18 07/31/18 04:18 07/31/18 04:18 07/31/18 04:18 Discharge - Discharge Clinical Impression: Abscess, Cellulitis and abscess of left leg Condition: Good Instructions: Abscess ([facility]), Cephalexin ([facility]), Trimethoprim-Sulfa ([facility]) Additional Instructions: You are seen in the emergency department this morning for abscesses and elatha lulitis. We have given you a dose of antibiotics by shot to get started. Please fill your prescriptions and start taking your medications when you get them filled. You will be taking Keflex 4 times per day and Bactrim 2 times per day. Please take the medications in their entirety. We have marked the cellulitis on her leg with a skin pen. Please monitor for any spreading or worsening and if you develop fevers, chills, notice red streaks moving up your leg, or if begins to spread to please return to the emergency department. Please call the wound clinic first thing on Thursday for them to reevaluate your wounds. Referrals: KURT PARKS MD [Primary Care Provider] - Follow up as needed
[2018-07-31] MEDS ORDERED: LIDOCAINE 1% INJ (10 MG/ML) 10 ML MDV INJ ONE (08:11)
[2018-07-31] MEDS ORDERED: CEFTRIAXONE INJ 1000 MG VIAL IM ONE (08:11)
[2018-07-31] MEDS ORDERED: SULFAMETHOXAZOLE/TRIMETHOPRIM 800-160 MG TABLET PO ONE (08:16)
[2018-07-31 08:47] VITALS: BP 125/77
== END 2018-07-31 08:47 | disposition home or self-care (01) ==
LOC: ER 04:10
DX: L02.416 Cutaneous abscess of left lower limb (principal); L03.116 Cellulitis of left lower limb; L02.414 Cutaneous abscess of left upper limb; E11.9 Type 2 diabetes mellitus without complications; Z79.4 Long term (current) use of insulin; I10 Essential (primary) hypertension; J45.909 Unspecified asthma, uncomplicated; Z91.018 Allergy to other foods
CPT/HCPCS: 99283; 96372; J0696

== ENCOUNTER 2018-10-20 15:07 | Emergency (ER) | payer OTHER ==
--- NOTE | 2018-10-20 16:55 | ER Document Report ---
HPI - HPI Patient complains to provider of: swelling to neck Time Seen by Provider: 10/20/18 16:20 Pain Level: 4 Context: Patient is a 43-year male presents to the emergency department for a swollen lesion noted to the left side of his neck. Patient states he has noticed this for the last 2 days. States he has not had any discharge from same. States he does have a history of abscesses on his right leg. States he was placed on antibiotics he did have an incision and drainage and that healed up properly. Patient states he is a diabetic takes Actos and Levemir. Patient's denying any allergies. Patient is denying any fever, nuchal rigidity, pain with swallowing, pain with movement of his neck. - REPRODUCTIVE Reproductive: DENIES: : Past Medical History - General Information source: Patient - Social History Smoking Status: Never Smoker Family History: Reviewed & Not Pertinent Patient has suicidal ideation: No Patient has homicidal ideation: No - Past Medical History Cardiac Medical History: Reports: Hx Hypercholesterolemia, Hx Hypertension Pulmonary Medical History: Reports: Hx Asthma Comment Only: Hx COPD - sleep apnea, CPAP at night Endocrine Medical History: Reports: Hx Diabetes Mellitus Type 2 Renal/ Medical History: Denies: Hx Peritoneal Dialysis Psychiatric Medical History: Reports: Hx Depression Past Surgical History: Reports: Hx Nose Surgery, Hx Orthopedic Surgery - rt leg infection - Immunizations Immunizations up to date: Yes Hx Diphtheria, Pertussis, Tetanus Vaccination: Yes Vertical Provider Document - CONSTITUTIONAL Agree With Documented VS: Yes Notes: GENERAL: Alert, interacts well. No acute distress. HEAD: Normocephalic, atraumatic. EYES: Pupils equal, round, and reactive to light. Extraocular movements intact. ENT: Oral mucosa moist, tongue midline. Nares patent. Pharynx within normal limits no palatal petechiae or exudate noted. NECK: Full range of motion. Supple. Trachea midline. Quarter size nonfluctuant hard lesion noted to the left anterior neck. No active discharge noted. No surrounding cellulitic tissue noted LUNGS: Clear to auscultation bilaterally, no wheezes, rales, or rhonchi. No respiratory distress. HEART: Regular rate and rhythm. No murmur ABDOMEN: Obese soft, non-tender. Non-distended. Bowel sounds present in all 4 q uadrants. EXTREMITIES: Moves all 4 extremities spontaneously. No edema, normal radial and dorsalis pedis pulses bilaterally. No cyanosis. BACK: no cervical, thoracic, lumbar midline tenderness. No saddle anesthesia, normal distal neurovascular exam. NEUROLOGICAL: Alert and oriented x3. Normal speech. cranial nerves II through XII grossly intact PSYCH: Normal affect, normal mood. SKIN: Warm, dry, normal turgor. No rashes or lesions noted. - INFECTION CONTROL TRAVEL OUTSIDE OF THE [place] IN LAST 30 DAYS: No Course - Re-evaluation Re-evalutation: 10/20/18 16:53 Discussed with patient that I do believe this could be the start of an abscess. Due to it being nonfluctuant and hard in nature there is no need for an incision and drainage at this time. Discussed use of antibiotics, warm compresses, follow-up with primary care provider return precautions to the emergency room. Patient stable for discharge. - Vital Signs Vital signs: Temp Pulse Resp BP Pulse Ox 98.3 F 99 18 117/83 95 10/20/18 15:13 10/20/18 15:13 10/20/18 15:13 10/20/18 15:13 10/20/18 15:13 Discharge - Discharge Clinical Impression: Abscess Condition: Stable Disposition: HOME, SELF-CARE Instructions: Abscess ([facility]), Cephalexin ([facility]) Additional Instructions: As we discussed you have not seen and treated in the emergency department for potential abscess in the left side of your neck. At this point time it is not appropriate to perform an incision and drainage. Please make sure using warm compresses and taking antibiotics as prescribed. Please also follow-up with your primary care provider in the next 24 to 48 hours. His return to the emergency room for any other concerning symptoms. Prescriptions: Cephalexin Monohydrate [Keflex 500 mg Capsule] 500 mg PO BID 7 Days #14 capsule Referrals: KURT PARKS MD [Primary Care Provider] - Follow up as needed
[2018-10-20 17:03] VITALS: BP 123/84
== END 2018-10-20 16:56 | disposition home or self-care (01) ==
LOC: ER 15:07
DX: L02.11 Cutaneous abscess of neck (principal); I10 Essential (primary) hypertension; E78.00 Pure hypercholesterolemia, unspecified; E11.9 Type 2 diabetes mellitus without complications
CPT/HCPCS: 99282

== ENCOUNTER 2018-11-27 20:41 | Emergency (ER) | payer OTHER ==
--- NOTE | 2018-11-28 00:36 | ER Document Report ---
ED Skin Rash/Insect Bite/Abscs - General Chief Complaint: Abscess Stated Complaint: ABSCESS Time Seen by Provider: 11/27/18 22:43 Primary Care Provider: KURT PARKS MD [Primary Care Provider] - Follow up in 3-5 days Notes: Patient is a 43-year-old male who presents the emergency department with a chief complaint of pain to his left anterior thigh. He states that he normally gets abscesses and he started to feel one yesterday. There is surrounding erythema to the area. He denies any fever, body aches, chills, or any other symptoms. He has a past medical history of asthma, obstructive sleep apnea, diabetes, and hypertension. He currently takes all his medications. TRAVEL OUTSIDE OF THE [place] IN LAST 30 DAYS: No - Related Data Allergies/Adverse Reactions: bananas Allergy (Uncoded 06/16/18 08:18) Past Medical History - Social History Smoking Status: Never Smoker Chew tobacco use (# tins/day): No Frequency of alcohol use: None Drug Abuse: None Family History: Reviewed & Not Pertinent Patient has suicidal ideation: No Patient has homicidal ideation: No - Past Medical History Cardiac Medical History: Reports: Hx Hypercholesterolemia, Hx Hypertension Pulmonary Medical History: Reports: Hx Asthma Comment Only: Hx COPD - sleep apnea, CPAP at night Endocrine Medical History: Reports: Hx Diabetes Mellitus Type 2 Renal/ Medical History: Denies: Hx Peritoneal Dialysis Psychiatric Medical History: Reports: Hx Depression Past Surgical History: Reports: Hx Nose Surgery, Hx Orthopedic Surgery - rt leg infection - Immunizations Immunizations up to date: Yes Hx Diphtheria, Pertussis, Tetanus Vaccination: Yes Review of Systems - Review of Systems Notes: REVIEW OF SYSTEMS: CONSTITUTIONAL : Denies recent illness. Denies recent unintentional weight loss. Denies fever, chills, or sweats. EENT: Denies eye, ear, throat, or mouth pain, discharge, or symptoms. Denies nasal or sinus congestion. CARDIOVASCULAR: Denies chest pain. RESPIRATORY: Denies shortness of breath, cough, congestion, difficulty breathi ng, or wheezing. GASTROINTESTINAL: Denies nausea, vomiting, and diarrhea. Denies abdominal pain. Denies constipation. GENITOURINARY: Denies difficulty urinating, burning, blood in urine, urgency or frequency. MUSCULOSKELETAL: Denies neck and back pain. Denies joint pain or swelling. SKIN: See HPI HEMATOLOGIC : Denies easy bruising or bleeding. LYMPHATIC: Denies swollen, painful, enlarged glands. NEUROLOGICAL: Denies no numbness or tingling denies weakness. Denies headache. Denies altered mental status. Denies alteration in speech. PSYCHIATRIC: Denies stress, anxiety, alteration in sleep patterns, or depression. All other systems reviewed and negative. Physical Exam - Vital signs Vitals: Temp Pulse Resp BP Pulse Ox 98.5 F 95 20 139/82 H 95 11/27/18 20:44 11/27/18 20:44 11/27/18 20:44 11/27/18 20:44 11/27/18 20:44 - Notes Notes: PHYSICAL EXAMINATION: GENERAL: Appears well, obese, no acute distress. HEAD: Normocephalic, atraumatic. EYES: PERRL, conjunctiva normal, all extraocular movements intact, sclera nonicteric ENT: Moist mucous membranes. NECK: Supple, no noticeable swelling, redness, rash. Normal range of motion. LUNGS: Equal breath sounds bilaterally and clear to auscultation. No wheezes rales or rhonchi. CARDIOVASCULAR: S1-S2, regular rate, regular rhythm. Radial pulses 2+, normal. ABDOMEN: Normoactive bowel sounds. Soft, nontender, no guarding, no rebound tenderness, and no masses palpated. EXTREMITIES: Normal strength and range of motion, no pitting or edema. No cyanosis. NEUROLOGICAL: Moves all extremities upon command. Strength 5/5 in all extremities. PSYCH: Normal mood, normal affect. SKIN: Warm, dry. Abscess noted to left anterior thigh with surrounding erythema. Course - Re-evaluation Re-evalutation: 11/28/18 00:36 Differential diagnosis includes but normal limited to: abscess, dermoid cyst, sebaceous cyst, furnucle, or others. Based on patient's physical exam and history, this is an abscess. It was drained in the ER. There is surrounding cellulitis. I do not believe the patient has underlying necrotizing fasciitis. Based on patient's physical exam and these factors, they will be treated with antibiotics. Verbal discharge instructions were given to the patient. They verbalized understanding. They are stable for discharge. - Vital Signs Vital signs: Temp Pulse Resp BP Pulse Ox 98.5 F 95 20 139/82 H 95 11/27/18 20:44 11/27/18 20:44 11/27/18 20:44 11/27/18 20:44 11/27/18 20:44 Procedures - Incision and Drainage Left Thigh Type: Simple Anesthetic type: 1% Lidocaine mL's of anesthetic: 5 Blade size: 11 I&D procedure: Betadine prep applied Incision Method: Incision made by scalpel Amount/type of drainage: 5 mls; blood and purulent drainage Discharge - Discharge Clinical Impression: Abscess Cellulitis Qualifiers: Site of cellulitis: extremity Site of cellulitis of extremity: lower extremity Laterality: left Qualified Code(s): L03.116 - Cellulitis of left lower limb Condition: Stable Disposition: HOME, SELF-CARE Instructions: Cephalexin ([facility]), Post Incision and Drainage, Trimethoprim-Sulfa ([facility]) Additional Instructions: You were seen for an abscess that required drainage. Please clean this area with soap and water twice daily and apply a topical antibiotic. Dress the area after each cleaning. Please return if you develop fever, vomiting, the pain at the site worsens, you notice spreading redness from the area, or you have any other symptoms that are concerning to you. The rash is likely due to infection of your skin. You need to take the antibiotics as prescribed. Do not stop even if the rash goes away until you have completed all the antibiotics. The area of redness was traced out here in the emergency department with a marking pen. You need to return to emergency department if the redness spreads outside of this area by more than 2 cm in any direction. You should also return if you develop fevers with temperature greater than 101, persistent vomiting, worsening pain, or have any other symptoms that are concerning to you. Prescriptions: Cephalexin Monohydrate [Keflex 500 mg Capsule] 500 mg PO Q6H 7 Days #28 capsule Sulfamethoxazole/Trimethoprim [Bactrim Ds Tablet] 1 each PO BID 7 Days #14 tablet Referrals: KURT PARKS MD [Primary Care Provider] - Follow up in 3-5 days
[2018-11-28] MEDS ORDERED: SULFAMETHOXAZOLE/TRIMETHOPRIM 800-160 MG TABLET PO ONE (00:44)
[2018-11-28] MEDS ORDERED: CEPHALEXIN 500 MG CAPSULE PO ONE (00:44)
[2018-11-28 00:58] VITALS: BP 149/76
== END 2018-11-28 00:58 | disposition home or self-care (01) ==
LOC: ER 20:41
DX: L03.116 Cellulitis of left lower limb (principal); M79.652 Pain in left thigh; E78.00 Pure hypercholesterolemia, unspecified; I10 Essential (primary) hypertension; E11.9 Type 2 diabetes mellitus without complications
CPT/HCPCS: 99283

== ENCOUNTER → 2018-12-09 | Outpatient (CLI) | payer OTHER ==
--- NOTE | 2018-12-09 10:10 | RADIOLOGY REPORT (SQ) ---
EXAM DESCRIPTION: CHEST PA/LATERAL COMPLETED DATE/TIME: 12/09/2018 8:23 am REASON FOR STUDY: ACUTE BRONCHITIS, UNSPECIFIED COMPARISON: None. EXAM PARAMETERS: NUMBER OF VIEWS: two views TECHNIQUE: Digital Frontal and Lateral radiographic views of the chest acquired. RADIATION DOSE: NA LIMITATIONS: none FINDINGS: LUNGS AND PLEURA: No opacities, masses or pneumothorax. No pleural effusion. MEDIASTINUM AND HILAR STRUCTURES: No masses or contour abnormalities. HEART AND VASCULAR STRUCTURES: Heart normal size. No evidence for failure. BONES: No acute findings. HARDWARE: None in the chest. OTHER: No other significant finding. IMPRESSION: NO SIGNIFICANT RADIOGRAPHIC FINDING IN THE CHEST. TECHNICAL DOCUMENTATION: JOB ID: [id number] [employer]- All Rights Reserved Reading location - IP/workstation name: [email or web address]
== END ==
LOC: CCC 08:13
DX: J20.9 Acute bronchitis, unspecified (principal); R05 Cough
CPT/HCPCS: 71046

== ENCOUNTER 2018-12-31 07:50 | Emergency (ER) | payer OTHER ==
--- NOTE | 2018-12-31 08:17 | RADIOLOGY REPORT (SQ) ---
EXAM DESCRIPTION: CHEST 2 VIEWS COMPLETED DATE/TIME: 12/31/2018 8:06 am REASON FOR STUDY: Chest Pain COMPARISON: 12/09/2018 EXAM PARAMETERS: NUMBER OF VIEWS: two views TECHNIQUE: Digital Frontal and Lateral radiographic views of the chest acquired. RADIATION DOSE: NA LIMITATIONS: none FINDINGS: LUNGS AND PLEURA: No opacities, masses or pneumothorax. No pleural effusion. MEDIASTINUM AND HILAR STRUCTURES: No masses or contour abnormalities. HEART AND VASCULAR STRUCTURES: Heart normal size. No evidence for failure. BONES: No acute findings. HARDWARE: None in the chest. OTHER: No other significant finding. IMPRESSION: No acute abnormality of the lungs. No focal airspace opacity. TECHNICAL DOCUMENTATION: JOB ID: [id number] [employer]- All Rights Reserved Reading location - IP/workstation name: [email or web address]
[2018-12-31] MEDS ORDERED: NORMAL SALINE 1000 ML 1,000 ML IV ONE (10:16)
--- NOTE | 2018-12-31 10:20 | ER Document Report ---
ED General - General Chief Complaint: Chest Pain Stated Complaint: COUGH,CONGESTION,CHEST PAIN Time Seen by Provider: 12/31/18 09:53 Primary Care Provider: [facility] [Primary Care Provider] - Follow up as needed Notes: Pleasant 43-year-old male with insulin-dependent diabetes mellitus, hypertension, sleep apnea, asthma presents to the emergency department with chief complaint of chest pain and coughing. Patient states that he was diagnosed with pneumonia 3 weeks ago and placed on an antibiotic. Patient completed the course of antibiotics but has had a persistent cough since then and has had chest wall pain. No chest pain at rest. No diaphoresis, no nausea, no vomiting, does complain of dyspnea on exertion. Denies fevers or chills, headache or neck stiffness, abdominal pain. No other complaints. TRAVEL OUTSIDE OF THE [place] IN LAST 30 DAYS: No - Related Data Allergies/Adverse Reactions: bananas Allergy (Uncoded 12/31/18 07:53) Past Medical History - Social History Smoking Status: Never Smoker Family History: Reviewed & Not Pertinent - Past Medical History Cardiac Medical History: Reports: Hx Hypercholesterolemia, Hx Hypertension Pulmonary Medical History: Reports: Hx Asthma Comment Only: Hx COPD - sleep apnea, CPAP at night Endocrine Medical History: Reports: Hx Diabetes Mellitus Type 2 Renal/ Medical History: Denies: Hx Peritoneal Dialysis Psychiatric Medical History: Reports: Hx Depression Past Surgical History: Reports: Hx Nose Surgery, Hx Orthopedic Surgery - rt leg infection - Immunizations Immunizations up to date: Yes Hx Diphtheria, Pertussis, Tetanus Vaccination: Yes Review of Systems - Review of Systems Constitutional: See HPI EENT: No symptoms reported Cardiovascular: See HPI Respiratory: See HPI Gastrointestinal: See HPI Genitourinary: No symptoms reported Male Genitourinary: No symptoms reported Musculoskeletal: No symptoms reported Skin: No symptoms reported Hematologic/Lymphatic: No symptoms reported Neurological/Psychological: No symptoms reported Physical Exam - Vital signs Vitals: Resp BP Pulse Ox 21 H 97/63 L 88 L 12/31/18 09:30 12/31/18 09:30 12/31/18 09:30 - Notes Notes: PHYSICAL EXAMINATION: Reviewed vital signs and charting by RN GENERAL: Alert, interacts well. No acute distress. HEAD: Normocephalic, atraumatic. EYES: Pupils equal and round. Extraocular movements intact. ENT: Oral mucosa moist, tongue midline. NECK: Full range of motion. Trachea midline. LUNGS: Clear to auscultation bilaterally, no wheezes, rales, or rhonchi. No respiratory distress. HEART: Sinus tachycardia. No murmur ABDOMEN: Obese abdomen, soft, non-tender. No distention. Bowel sounds present EXTREMITIES: Moves all 4 extremities spontaneously. No edema, No cyanosis. PSYCH: Normal affect, normal mood. SKIN: Warm, dry, normal turgor. No rashes or lesions noted. Course - Re-evaluation Re-evalutation: 12/31/18 10:19 Overall well-appearing. Basic labs obtained. Chest x-ray done shows no acute infiltrate or consolidation. EKG done shows a sinus tachycardia, rate 109, QT interval 442 no axis deviation. Will obtain some basic labs to include a trop onin. 12/31/18 10:20 12/31/18 12:57 Troponin returned at 0.049. I have very low suspicion for cardiac etiology at this time. Heart score 2. I will get a delta troponin and discussed with patient. 12/31/18 14:53 Second troponin did come back at 0.069. I had a long discussion with patient and explained to him that based on his heart score his 30-day risk for major adverse cardiac event is 0.9 to 1.5% this is still not a completely normal result, but could be elevated due to his persistent coughing. I have given him strict return precautions and told him to immediately return to the emergency department if he has symptoms like nausea with diaphoresis with chest pain, severe dyspnea at rest. Patient clearly understands his return precautions and I instructed him to follow-up with his primary doctor first thing Thursday morning and if anything changes to immediately return to the emergency department. He understood all these instructions and agrees. Him and his were satisfied with the plan. Stable for discharge. Vital signs within normal limits. - Vital Signs Vital signs: Temp Pulse Resp BP Pulse Ox 23 H 129/77 H 89 L 12/31/18 11:01 12/31/18 11:01 12/31/18 11:01 - Laboratory Result Diagrams: 12/31/18 10:10 12/31/18 10:10 Laboratory results interpreted by me: 12/31/18 12/31/18 10:10 10:10 WBC 10.7 H Hgb 13.1 L RDW 15.4 H Carbon Dioxide 31 H Glucose 253 H Discharge - Discharge Clinical Impression: Cough, Chest wall pain Condition: Good Disposition: HOME, SELF-CARE Additional Instructions: You were seen today for cough and chest wall pain. The exact cause of your pain is unclear. However, based on your cardiac enzyme testing (although very slightly elevated), chest x-ray, and EKG it does not appear that it is from an immediately life-threatening cause at this time and is most likely related to your pneumonia that you had a couple weeks ago. There are still some minor lingering findings in the chest x-ray but they have greatly improved so there is nothing to do her today with respect to treatment. Although your testing here is normal is critical that you follow-up with your primary care physician for continued evaluation of this chest pain and possible stress testing. I recommended you see your physician within the next 24-48 hours to be evaluated for consideration of a stress test. Please return to emergency department immediately if you have worsening of your chest pain, shortness of breath, vomiting, become unable to exert yourself due to pain or difficulty breathing, you pass out, or have any pain that radiates into your arms, jaw, or back. Please also return if you have any additional symptoms that are concerning to you. Prescriptions: Hydrocodone Bit/Homatropine [Hycodan Syrup 5-1.5 mg/5 ml Ud Cup] 5 ml PO Q4HP PRN #120 ml PRN Reason: [facility]errals: [facility] [Primary [facility] Provider] - Follow up as needed
[2018-12-31 10:21] LABS: ABSOLUTE BASOPHILS # (AUTO) 0.1 10^3/uL (0.0-0.2); ABSOLUTE EOSINOPHILS # (AUTO) 0.1 10^3/uL (0.0-0.6); ABSOLUTE LYMPHOCYTES (AUTO) 2.7 10^3/uL (0.5-4.7); ABSOLUTE MONOCYTES (AUTO) 0.5 10^3/uL (0.1-1.4); ABSOLUTE NEUT (AUTO) 7.5 10^3/uL (1.7-8.2); BASOPHILS % (AUTO) 0.5 % (0-2); EOSINOPHILS % (AUTO) 0.6 % (0-6); HEMATOCRIT 39.1 % (37.9-51.0); HEMOGLOBIN 13.1 g/dL (13.5-17.0); LYMPHOCYTES % (AUTO) 24.8 % (13-45); MEAN CORPUSCULAR HEMOGLOBIN 28.7 pg (27.0-33.4); MEAN CORPUSCULAR HGB CONC 33.5 g/dL (32.0-36.0); MEAN CORPUSCULAR VOLUME 86 fl (80-97); MONOCYTES % (AUTO) 4.4 % (3-13); PLATELET COUNT 262 10^3/uL (150-450); RED BLOOD COUNT 4.56 10^6/uL (4.35-5.55); RED CELL DISTRIBUTION WIDTH 15.4 % (11.5-14.0); SEGMENTED NEUTROPHILS % (AUTO) 69.7 % (42-78); TOTAL CELLS COUNTED % (AUTO) 100 %; WHITE BLOOD COUNT 10.7 10^3/uL (4.0-10.5)
[2018-12-31 10:40] LABS: ALANINE AMINOTRANSFERASE 22 U/L (21-72); ALBUMIN 3.8 g/dL (3.5-5.0); ALKALINE PHOSPHATASE 100 U/L (38-126); ANION GAP 7 (5-19); ASPARTATE AMINO TRANSFERASE 22 U/L (17-59); BILIRUBIN,DIRECT 0.2 mg/dL (0.0-0.4); BILIRUBIN,TOTAL 0.8 mg/dL (0.2-1.3); BLOOD UREA NITROGEN 14 mg/dL (7-20); CALCIUM 9.4 mg/dL (8.4-10.2); CARBON DIOXIDE 31 mmol/L (22-30); CHLORIDE 99 mmol/L (98-107); GLUCOSE 253 mg/dL (75-110); POTASSIUM 3.6 mmol/L (3.6-5.0); SODIUM 137.3 mmol/L (137-145); TOTAL PROTEIN 6.8 g/dL (6.3-8.2)
--- NOTE | 2018-12-31 13:59 | EKG REPORT ---
SEVERITY:- BORDERLINE ECG - SINUS TACHYCARDIA CONSIDER ANTERIOR INFARCT BORDERLINE T WAVE ABNORMALITIES : Confirmed by: Matty Tellez 31-Dec-2018 13:59:03
[2018-12-31] MEDS ORDERED: HYDROCODONE BIT/HOMATROPINE SYRUP 5 ML UDCUP PO ONE (14:56)
[2018-12-31 15:23] VITALS: BP 135/97
== END 2018-12-31 15:48 | disposition home or self-care (01) ==
LOC: ER 07:50
DX: R07.89 Other chest pain (principal); R05 Cough; R79.89 Other specified abnormal findings of blood chemistry; I10 Essential (primary) hypertension; E11.9 Type 2 diabetes mellitus without complications; Z79.4 Long term (current) use of insulin; R00.0 Tachycardia, unspecified; J45.909 Unspecified asthma, uncomplicated; Z87.01 Personal history of pneumonia (recurrent); Z91.018 Allergy to other foods
CPT/HCPCS: 93005; 99284; 96360; 96361; 36415; 85025; 80053; 84484; 71046; 93010; J7030

== ENCOUNTER 2019-01-03 11:42 | Inpatient (IN) | payer OTHER ==
[2019-01-03 13:42] LABS: APPEARANCE,URINE CLEAR; BILIRUBIN,URINE NEGATIVE (NEGATIVE); COLOR,URINE STRAW; GLUCOSE, URINE 150 mg/dL (NEGATIVE); KETONES,URINE NEGATIVE (NEGATIVE); LEUKOCYTE ESTERASE,URINE NEGATIVE (NEGATIVE); NITRITE,URINE NEGATIVE (NEGATIVE); PROTEIN,URINE NEGATIVE (NEGATIVE); URINE SPECIFIC GRAVITY 1.021; UROBILINOGEN,URINE NEGATIVE mg/dL (<2.0)
[2019-01-03 13:53] LABS: ABSOLUTE BASOPHILS # (AUTO) 0.1 10^3/uL (0.0-0.2); ABSOLUTE EOSINOPHILS # (AUTO) 0.2 10^3/uL (0.0-0.6); ABSOLUTE LYMPHOCYTES (AUTO) 2.8 10^3/uL (0.5-4.7); ABSOLUTE MONOCYTES (AUTO) 0.5 10^3/uL (0.1-1.4); ABSOLUTE NEUT (AUTO) 5.7 10^3/uL (1.7-8.2); BASOPHILS % (AUTO) 0.8 % (0-2); EOSINOPHILS % (AUTO) 1.8 % (0-6); HEMATOCRIT 39.5 % (37.9-51.0); HEMOGLOBIN 13.1 g/dL (13.5-17.0); LYMPHOCYTES % (AUTO) 29.8 % (13-45); MEAN CORPUSCULAR HEMOGLOBIN 28.3 pg (27.0-33.4); MEAN CORPUSCULAR HGB CONC 33.1 g/dL (32.0-36.0); MEAN CORPUSCULAR VOLUME 85 fl (80-97); MONOCYTES % (AUTO) 5.5 % (3-13); PLATELET COUNT 283 10^3/uL (150-450); RED BLOOD COUNT 4.62 10^6/uL (4.35-5.55); SEGMENTED NEUTROPHILS % (AUTO) 62.1 % (42-78); TOTAL CELLS COUNTED % (AUTO) 100 %; WHITE BLOOD COUNT 9.3 10^3/uL (4.0-10.5)
[2019-01-03 14:11] LABS: ALANINE AMINOTRANSFERASE 17 U/L (21-72); ALBUMIN 4.2 g/dL (3.5-5.0); ALKALINE PHOSPHATASE 104 U/L (38-126); ANION GAP 9 (5-19); ASPARTATE AMINO TRANSFERASE 21 U/L (17-59); BILIRUBIN,DIRECT 0.3 mg/dL (0.0-0.4); BILIRUBIN,TOTAL 0.9 mg/dL (0.2-1.3); BLOOD UREA NITROGEN 15 mg/dL (7-20); CALCIUM 9.8 mg/dL (8.4-10.2); CARBON DIOXIDE 32 mmol/L (22-30); CHLORIDE 99 mmol/L (98-107); GLUCOSE 205 mg/dL (75-110); LIPASE 64.1 U/L (23-300); POTASSIUM 3.8 mmol/L (3.6-5.0); SODIUM 139.9 mmol/L (137-145); TOTAL PROTEIN 7.4 g/dL (6.3-8.2)
--- NOTE | 2019-01-03 14:14 | RADIOLOGY REPORT (SQ) ---
EXAM DESCRIPTION: CHEST 2 VIEWS COMPLETED DATE/TIME: 01/03/2019 1:59 pm REASON FOR STUDY: recent pneumonia short of breath COMPARISON: 12/31/2018 EXAM PARAMETERS: NUMBER OF VIEWS: two views TECHNIQUE: Digital Frontal and Lateral radiographic views of the chest acquired. RADIATION DOSE: NA LIMITATIONS: none FINDINGS: LUNGS AND PLEURA: No opacities, masses or pneumothorax. No pleural effusion. MEDIASTINUM AND HILAR STRUCTURES: No masses or contour abnormalities. HEART AND VASCULAR STRUCTURES: Heart normal size. No evidence for failure. BONES: No acute findings. HARDWARE: None in the chest. OTHER: No other significant finding. IMPRESSION: No acute abnormality of the lungs. No focal airspace opacity TECHNICAL DOCUMENTATION: JOB ID: [id number] [employer]- All Rights Reserved Reading location - IP/workstation name: [email or web address]
--- NOTE | 2019-01-03 16:16 | ER Document Report ---
HPI - HPI Patient complains to provider of: chest pain, sob Time Seen by Provider: 01/03/19 12:55 Onset: Other - intermittently for the last several days, more persistent today Onset/Duration: Gradual Quality of pain: Other - Squeezing Severity: Moderate Pain Level: 3 Context: 43-year-old male who is morbidly obese, with a history of diabetes, sleep apnea on CPAP, hypertension, here for intermittent substernal nonradiating chest pain over the last several days that became more persistent today. The pain is accompanied by some shortness of breath. He was seen and evaluated here 3 days ago for similar however states he had a cough then and was discharged after he had an unremarkable delta troponin, chest x-ray, and otherwise negative work-up with Hycodan cough syrup. He states the cough for the most part has resolved. He denies any ripping or tearing sensation. no syncope. no palpitations. no prior hx of arrythmias, Denies any prior cardiac history. He has not had a recent stress test or cardiac catheterization in the last year. He has never had any blood clots. He is not on any blood thinners. He does appear to be mostly immobile at baseline however secondary to his body habitus. He denies any recent long distance travel, history of cancer personally, recent surgery, hemoptysis, exogenous hormone use, calf pain or swelling. He denies smoking. He states the chest pain is worse when he is walking and he becomes short of breath with the chest pain to the point he has to stop and rest for the chest pain to go away. He states it kind of feels like an asthma exacerbation and he has used his albuterol inhaler more than he should however he states it does not help this tightness/squeezing pain sensation in his chest and shortness of breath like it usually does when he has an asthma flare. He states he did have pneumonia about a month ago and completed abx. He denies any other changes in medication or diet. No other recent antibiotics or steroids. He states his sugars usually run a well. PCP is [facility]. No fall or trauma. no other associated sx at this time. Associated Symptoms: Nonproductive cough, Shortness of breath Exacerbated by: Walking, Coughing Relieved by: Sitting, Remaining still Similar symptoms previously: Yes Recently seen / treated by doctor: Yes - CONSTITUTIONAL Constitutional: DENIES: Fever - EENT EENT: DENIES: Sore Throat - NEURO Neurology: DENIES: Headache, Vision blurred, Dizzinesss / Vertigo - CARDIOVASCULAR Cardiovascular: REPORTS: Chest pain - RESPIRATORY Respiratory: REPORTS: Coughing - GASTROINTESTINAL Gastrointestinal: DENIES: Abdominal Pain, Nausea, Diarrhea, Constipation, Black / Bloody Stools - REPRODUCTIVE Reproductive: DENIES: : - MUSCULOSKELETAL Musculoskeletal: DENIES: Extremity pain, Back Pain, Neck Pain, Swelling - DERM Skin Color: Normal Skin Problems: None Past Medical History - General Information source: Patient, Relative - Social History Smoking Status: Never Smoker Chew tobacco use (# tins/day): No Frequency of alcohol use: None Drug Abuse: None Family History: Reviewed & Not Pertinent Patient has suicidal ideation: No Patient has homicidal ideation: No - Past Medical History Cardiac Medical History: Reports: Hx Hypercholesterolemia, Hx Hypertension Pulmonary Medical History: Reports: Hx Asthma, Hx Sleep Apnea - CPAP at night Endocrine Medical History: Reports: Hx Diabetes Mellitus Type 2 Renal/ Medical History: Denies: Hx Peritoneal Dialysis Psychiatric Medical History: Reports: Hx Depression Past Surgical History: Reports: Hx Nose Surgery, Hx Orthopedic Surgery - rt leg infection - Immunizations Immunizations up to date: Yes Hx Diphtheria, Pertussis, Tetanus Vaccination: Yes Vertical Provider Document - CONSTITUTIONAL Notes: >>>> PHYSICAL_EXAM: GENERAL_APPEARANCE: well_nourished, alert, cooperative, no_acute_distress, no_obvious_discomfort. pleasant, morbidly obese middle-aged black male, smiling, speaking in full sentences, in no sign of pain or resp distress, significant other at bedside VITALS: reviewed, see vital signs table. HEAD: no_swelling\tenderness on the head. normocephalic. atraumatic. no robin signs. no raccoons eyes. EYES: PERRL, EOMI, conjunctiva_clear. NOSE: no_nasal_discharge. MOUTH: (-)decreased moisture. THROAT: no_tonsilar_inflammation/hypertrophy/exudate/thrush, no_airway_obstruction. no_lymphadenopathy NECK: supple, no_neck_tenderness, full rom. full strength. no meningeal signs. BACK: no_back_tenderness. CHEST_WALL: no_chest_tenderness. no overlying skin changes LUNGS: no_wheezing, ctab (-)accessory muscle use, slight decreased air exchange bilateral. HEART: normal_rate, normal_rhythm, ABDOMEN: normal_BS, soft, no_abd_tenderness, obese abdomen, exam limited secondary to patient's body habitus, (-)guarding, (-)rebound, no distension or peritoneal signs. no cva ttp EXTREMITIES: strength 5/5 in all_extremities, good pulses in all_extremities, no_swelling\tenderness in the extremities, no_edema. full rom. normal gait. good pulses. brisk cap refill. good hand classification counselor. neg claire sign NEURO: motor and sensation intact, cranial nerves 2-12 intact, cerebellar fxn intact SKIN: warm, dry, good_color, no_rash. MENTAL_STATUS: speech_clear, oriented_X_3, normal_affect, responds_appro priately to questions. - INFECTION CONTROL TRAVEL OUTSIDE OF THE [place] IN LAST 30 DAYS: No Course - Re-evaluation Re-evalutation: 01/03/19 19:57 this is a 43-year-old morbidly obese gentleman here for chest pain and shortness of breath. His labs were otherwise unremarkable. He was seen here 3 days ago and had a fairly unremarkable work-up. He was noted to be slightly hypoxic and tachycardic on my exam today. He had some decreased lung sounds on exam here today as well. His EKG was unremarkable per Dr. Proctor. Chest x-ray was negative per radiology and reviewed by myself. Secondary to his slight hypoxia and slight tachycardia and this being a repeat visit, I did order a CTA chest to look for PE and it was positive for multiple segmental PEs but showed no central or saddle embolism and possible left perihilar infiltrate and infiltrate of the posterior segment of the right posterior lower lobe, but no other acute finding per radiology reviewed by myself. He also has some symptoms of what appears to be stable angina and could benefit from an ACS rule out since he has not had one recently per patient. Heart score is a 4. patient was informed of his findings. he denies any cp or sob currently. I did discuss case with hospitalist, Dr. Esparza, who graciously agreed to accept the patient for further work-up and treatment. Care transferred to hospitalist in stable condition. Please refer to their note for further details of the visit. He did not request I add any further medication or treatment at this time. Vital signs are stable. 01/03/19 20:00 On reexam, pt remained stable throughout his ER stay. Nontoxic. Vss. well appearing. ++I independently evaluated this patient and discussed the case with ed attending, dr proctor, who directed and agrees with plan of care++Documentation achieved through voice recording which may despite best efforts include some typographical errors++ 01/03/19 20:08 - Vital Signs Vital signs: Temp Pulse Resp BP Pulse Ox 98.1 F 106 H 21 H 141/89 H 95 01/03/19 11:55 01/03/19 11:55 01/03/19 11:55 01/03/19 11:55 01/03/19 11:55 - Laboratory Result Diagrams: 01/03/19 13:13 01/03/19 13:13 Laboratory results interpreted by me: 01/03/19 01/03/19 01/03/19 13:00 13:13 13:13 Hgb 13.1 L RDW 15.0 H Carbon Dioxide 32 H Glucose 205 H ALT 17 L Urine Glucose (UA) 150 H 01/03/19 19:28 Labs- All tests 24 hr 01/03/19 01/03/19 01/03/19 13:00 13:13 13:13 WBC 9.3 RBC 4.62 Hgb 13.1 L Hct 39.5 MCV 85 MCH 28.3 MCHC 33.1 RDW 15.0 H Plt Count 283 Seg Neutrophils % 62.1 Lymphocytes % 29.8 Monocytes % 5.5 Eosinophils % 1.8 Basophils % 0.8 Absolute Neutrophils 5.7 Absolute Lymphocytes 2.8 Absolute Monocytes 0.5 Absolute Eosinophils 0.2 Absolute Basophils 0.1 PT INR APTT Sodium 139.9 Potassium 3.8 Chloride 99 Carbon Dioxide 32 H Anion Gap 9 BUN 15 Creatinine 1.11 Est GFR ( Amer) > 60 Est GFR (Non-Af Amer) > 60 Glucose 205 H Calcium 9.8 Total Bilirubin 0.9 Direct Bilirubin 0.3 Neonat Total Bilirubin Not Reportable Neonat Direct Bilirubin Not Reportable Neonat Indirect Bili Not Reportable AST 21 ALT 17 L Alkaline Phosphatase 104 Troponin I Total Protein 7.4 Albumin 4.2 Lipase 64.1 Urine Color STRAW Urine Appearance CLEAR Urine pH 6.0 Ur Specific [place] 1.021 Urine Protein NEGATIVE Urine Glucose (UA) 150 H Urine Ketones NEGATIVE Urine Blood NEGATIVE Urine Nitrite NEGATIVE Urine Bilirubin NEGATIVE Urine Urobilinogen NEGATIVE Ur Leukocyte Esterase NEGATIVE Urine WBC (Auto) 1 Urine RBC (Auto) 1 Squamous Epi Cells Auto <1 Urine Mucus (Auto) RARE Urine Ascorbic Acid NEGATIVE 01/03/19 01/03/19 13:13 18:57 WBC RBC Hgb Hct MCV MCH MCHC RDW Plt Count Seg Neutrophils % Lymphocytes % Monocytes % Eosinophils % Basophils % Absolute Neutrophils Absolute Lymphocytes Absolute Monocytes Absolute Eosinophils Absolute Basophils PT 14.6 INR 1.13 APTT 27.9 Sodium Potassium Chloride Carbon Dioxide Anion Gap BUN Creatinine Est GFR ( Amer) Est GFR (Non-Af Amer) Glucose Calcium Total Bilirubin Direct Bilirubin Neonat Total Bilirubin Neonat Direct Bilirubin Neonat Indirect Bili AST ALT Alkaline Phosphatase Troponin I 0.022 Total Protein Albumin Lipase Urine Color Urine Appearance Urine pH Ur Specific [place] Urine Protein Urine Glucose (UA) Urine Ketones Urine Blood Urine Nitrite Urine Bilirubin Urine Urobilinogen Ur Leukocyte Esterase Urine WBC (Auto) Urine RBC (Auto) Squamous Epi Cells Auto Urine Mucus (Auto) Urine Ascorbic Acid Category Date Time Status EKG Documentation STAT Care 01/03/19 16:59 Completed CHEST 2 VIEWS [RAD] Stat Exams 01/03/19 12:56 Completed CTA CHEST [CT] Stat Exams 01/03/19 16:58 Completed ADD ON [ADD ON TESTING BLD IN LAB] [CHEM] Stat Lab 01/03/19 13:13 Completed BLOOD CULTURE [MC] Stat Lab 01/03/19 14:58 Received CBC WITH DIFF [HEME] Stat Lab 01/03/19 13:13 Completed COMPREHENSIVE METABOLIC PANEL [CHEM] Stat Lab 01/03/19 13:13 Completed LIPASE [CHEM] Stat Lab 01/03/19 13:13 Completed PROTHROMBIN TIME/INR [COAG] Stat Lab 01/03/19 18:57 Completed PTT [PARTIAL THROMBOPLASTIN TIME] [COAG] Stat Lab 01/03/19 18:57 Completed TROPONIN I [CHEM] Stat Lab 01/03/19 13:13 Completed URINALYSIS [URIN] Stat Lab 01/03/19 13:00 Completed Normal Saline 1000 ml [NaCl 0.9% 1000 ml IV Soln] 1,000 Med 01/03/19 16:59 Discontinued ml IV BOLUS EKG [ELECTROCARDIOGRAM] Stat Oth 01/03/19 16:58 Completed - Diagnostic Test Radiology reviewed: Image reviewed, Reports reviewed Radiology results interpreted by me: 01/03/19 19:37 Chest X-Ray 01/03/19 12:56 IMPRESSION: No acute abnormality of the lungs. No focal airspace opacity Chest/Abdomen CTA 01/03/19 16:58 IMPRESSION: Multiple emboli visualized in the segmental pulmonary arterial branches of both lungs. No central or saddle embolus. Small areas of patchy consolidation in the left parahilar and posterior segment right lower lobe. - EKG Interpretation by Me EKG shows normal: Sinus rhythm Rate: Normal Rhythm: NSR - 93 bpm, no stemi, poor r wave progression, unremarkable when compared to prior per review by dr proctor When compared to previous EKG there are: No significant change - Consults [facility] Time consulted: 19:20 - agreed to accept pt to his service. Reason for consultation: 01/03/19 19:39 PE, CP-rule out ACS, infiltrate 01/03/19 20:12 Consulted provider: will see as inpatient Discharge - Discharge Clinical Impression: Shortness of breath, Stable angina, Infiltrate noted on imaging study Pulmonary embolism Qualifiers: Pulmonary embolism type: unspecified Chronicity: acute Acute cor pulmonale presence: without acute cor pulmonale Qualified Code(s): I26.99 - Other pulmonary embolism without acute cor pulmonale Chest pain Qualifiers: Chest pain type: unspecified Qualified Code(s): R07.9 - Chest pain, unspecified Condition: Fair Disposition: ADMITTED INPATIENT Admitting Provider: [facility] (Hospitalist) Unit Admitted: IMCU Referrals: KURT PARKS MD [Primary Care Provider] - Follow up as needed
[2019-01-03] MEDS ORDERED: NORMAL SALINE 1000 ML 1,000 ML IV ONE (16:59)
--- NOTE | 2019-01-03 18:23 | RADIOLOGY REPORT (SQ) ---
EXAM DESCRIPTION: CTA CHEST COMPLETED DATE/TIME: 01/03/2019 6:05 pm REASON FOR STUDY: chest pain, sob, r/o pe COMPARISON: None. TECHNIQUE: CT scan of the chest performed using helical scanning technique with dynamic intravenous contrast injection. Images reviewed with lung, soft tissue and bone windows. Reconstructed coronal and sagittal MPR images reviewed. Additional 3 dimensional post-processing performed to develop Maximal Intensity Projection images (HI P). All images stored on PACS. All CT scanners at this facility use dose modulation, iterative reconstruction, and/or weight based d osing when appropriate to reduce radiation dose to as low as reasonably achievable (ALARA). [facility]: Dose Right [facility]: CareDose [facility]: Dose Right [facility]: Teradose 4D [facility]: ALOHA CONTRAST TYPE AND DOSE: contrast/concentration: Isovue 350.00 mg/ml; Total Contrast Delivered: 80.0 ml; Total Saline Delivered: 80.0 ml Contrast bolus optimized for the pulmonary arteries. Not diagnostic for the aorta. RENAL FUNCTION: None required. The patient is less than 50 years old. RADIATION DOSE: CT Rad equipment meets quality standard of care and radiation dose reduction techniq ues were employed. CTDIvol: 15.5 - 65.7 mGy. DLP: 631 mGy-cm. . LIMITATIONS: None. FINDINGS: LUNGS AND PLEURA: No pneumothorax. Small areas of patchy consolidation in the left parah ilar and posterior segment right lower lobe. No pleural effusions. AORTA AND GREAT VESSELS: No aneurysm. Contrast bolus not optimized for the aorta. HEART: No pericardial effusion. No significant coronary artery calcifications. PULMONARY ARTERIES: Multiple emboli visualized in the segmental pulmonary arterial branches of both l ungs. No central or saddle embolus. HILAR AND MEDIASTINAL STRUCTURES: Few enlarged right peritracheal and hilar nodes. HARDWARE: None in the chest. UPPER ABDOMEN: No significant findings. Limited exam. THYROID AND OTHER SOFT TISSUES: No masses. No adenopathy. BONES: No acute or significant finding. 3D MIPS: Confirm above findings. OTHER: No other significant finding. IMPRESSION: Multiple emboli visualized in the segmental pulmonary arterial branches of both lungs. N o central or saddle embolus. Small areas of patchy consolidation in the left parahilar and posterior segment right lower lobe. COMMENT: Quality ID # [id number]: Final reports with documentation of one or more dose reduction techniques (e.g., Automated exposure control, adjustment of the mA and/or kV according to patient size, use of iterative reconstruction technique) TECHNICAL DOCUMENTATION: JOB ID: [id number] [employer]- All Rights Reserved Reading location - IP/workstation name: [email or web address]
[2019-01-03 19:17] LABS: INTERNATIONAL RATION (INR) 1.13; PROTHROMBIN TIME 14.6 SEC (11.4-15.4)
[2019-01-03 19:18] LABS: PARTIAL THROMBOPLASTIN TIME 27.9 SEC (23.5-35.8)
--- NOTE | 2019-01-03 19:24 | EKG REPORT ---
SEVERITY:- BORDERLINE ECG - SINUS RHYTHM BORDERLINE R WAVE PROGRESSION, ANTERIOR LEADS : Confirmed by: Suad Baumann MD 03-Jan-2019 19:23:54
[2019-01-03] MEDS ORDERED: IPRATROPIUM/ALBUTEROL 0.5-2.5 MG/3 ML AMPUL NEB PRN (19:32)
[2019-01-03] MEDS ORDERED: MAG HYDROX/AL HYDROX/SIMETH SUSP 30 ML UDCUP PO PRN (19:32)
[2019-01-03] MEDS ORDERED: ACETAMINOPHEN 325 MG TABLET PO PRN (19:32)
[2019-01-03] MEDS ORDERED: DEXTROSE 40% GEL 15 GM TUBE PO PRN ×2 (19:35)
[2019-01-03] MEDS ORDERED: DEXTROSE 50%-WATER 25 GM/50 ML DISP.SYRIN IV PRN ×2 (19:35)
[2019-01-03] MEDS ORDERED: GLUCAGON,HUMAN RECOMB 1 MG INJ IM PRN (19:35)
[2019-01-03] MEDS: FONDAPARINUX SODIUM INJ 10 MG/0.8 ML DISP.SYRIN SUBCUT SCH (20:48)
[2019-01-04] MEDS ORDERED: HUM INSULIN NPH/REG INSULIN HM 100 UNIT/1 ML 3 ML SUBCUT ONE (00:21)
--- NOTE | 2019-01-04 03:52 | PDOC H&P ---
History of Present Illness Admission Date/PCP: 01/03/19 19:56 KURT PARKS MD Patient complains of: Chest pain History of Present Illness: SCOTTY BEARDEN JR is a 43 year old male with a past medical history of morbid obesity, obstructive sleep apnea, hypertension and insulin-dependent diabetes. He presents with several weeks of right lower extremity swelling followed by several episodes of sharp 2 out of 5 intensity, nonradiating intermittent retrosternal chest pain associated with shortness of breath, prompting him to seek evaluation in the emergency room. In the emergency department he is found to have a edematous left leg and a CTA positive for pulmonary emboli. He denies recent change in medication regiment and is referred to the hospitalist for admission. Past Medical History Cardiac Medical History: Reports: Hyperlipidema, Hypertension Pulmonary Medical History: Reports: Asthma, Sleep Apnea - CPAP at night Endocrine Medical History: Reports: Diabetes Mellitus Type 2 Psychiatric Medical History: Reports: Depression Past Surgical History Past Surgical History: Reports: Orthopedic Surgery - rt leg infection Social History Information Source: Patient Smoking Status: Never Smoker Frequency of Alcohol Use: None - Advance Directive Resuscitation Status: Full Code Family History Family History: Hypertension Parental Family History Reviewed: Yes Children Family History Reviewed: Yes Sibling(s) Family History Reviewed.: Yes Medication/Allergy Allergies/Adverse Reactions: No Known Drug Allergies Allergy (Verified 01/03/19 11:43) bananas Allergy (Uncoded 01/03/19 11:43) Review of Systems Constitutional: PRESENT: as per HPI, weight gain. ABSENT: chills, fever(s), headache(s), weight loss Eyes: ABSENT: visual disturbances Ears: ABSENT: hearing changes Cardiovascular: ABSENT: chest pain, dyspnea on exertion, edema, orthropnea, palpitations Respiratory: PRESENT: as per HPI, dyspnea. ABSENT: cough, hemoptysis, sputum Gastrointestinal: ABSENT: abdominal pain, constipation, diarrhea, hematemesis, hematochezia, nausea, vomiting Genitourinary: ABSENT: dysuria, hematuria Musculoskeletal: ABSENT: joint swelling Integumentary: ABSENT: rash, wounds Neurological: ABSENT: abnormal gait, abnormal speech, confusion, dizziness, focal weakness, syncope Psychiatric: ABSENT: anxiety, depression, homidical ideation, suicidal ideation Endocrine: ABSENT: cold intolerance, heat intolerance, polydipsia, polyuria Hematologic/Lymphatic: ABSENT: easy bleeding, easy bruising Physical Exam Vital Signs: Temp Pulse Resp BP Pulse Ox 98.6 F 106 H 16 125/89 H 92 01/04/19 02:00 01/03/19 11:55 01/04/19 03:00 01/04/19 03:00 01/04/19 03:00 Intake & Output 01/02/19 01/03/19 01/04/19 11:59 11:59 11:59 Intake Total 1000 Balance 1000 Weight 177.1 kg General appearance: PRESENT: no acute distress, cooperative, morbidly obese, well-developed, well-nourished Head exam: PRESENT: atraumatic, normocephalic Eye exam: PRESENT: conjunctiva pink, EOMI, PERRLA. ABSENT: scleral icterus Ear exam: PRESENT: normal external ear exam Mouth exam: PRESENT: moist, tongue midline Neck exam: ABSENT: carotid bruit, JVD, lymphadenopathy, thyromegaly Respiratory exam: PRESENT: clear to auscultation dre, tachypnea. ABSENT: rales, rhonchi, wheezes Cardiovascular exam: PRESENT: RRR. ABSENT: diastolic murmur, rubs, systolic murmur Pulses: PRESENT: normal dorsalis pedis pul Vascular exam: PRESENT: normal capillary refill GI/Abdominal exam: PRESENT: normal bowel sounds, soft. ABSENT: distended, guarding, mass, organolmegaly, rebound, tenderness Rectal exam: PRESENT: deferred Extremities exam: PRESENT: +1 edema - Right leg. ABSENT: calf tenderness Neurological exam: PRESENT: alert, awake, oriented to person, oriented to place, oriented to time, oriented to situation, CN II-XII grossly intact. ABSENT: motor sensory deficit Psychiatric exam: PRESENT: appropriate affect, normal mood. ABSENT: homicidal ideation, suicidal ideation Skin exam: PRESENT: dry, intact, warm. ABSENT: cyanosis, rash Results Laboratory Results: 01/03/19 13:13 01/03/19 13:13 01/03/19 01/03/19 01/03/19 13:00 13:13 13:13 WBC 9.3 RBC 4.62 Hgb 13.1 L Hct 39.5 MCV 85 MCH 28.3 MCHC 33.1 RDW 15.0 H Plt Count 283 Seg Neutrophils % 62.1 Lymphocytes % 29.8 Monocytes % 5.5 Eosinophils % 1.8 Basophils % 0.8 Absolute Neutrophils 5.7 Absolute Lymphocytes 2.8 Absolute Monocytes 0.5 Absolute Eosinophils 0.2 Absolute Basophils 0.1 Sodium 139.9 Potassium 3.8 Chloride 99 Carbon Dioxide 32 H Anion Gap 9 BUN 15 Creatinine 1.11 Est GFR ( Amer) > 60 Est GFR (Non-Af Amer) > 60 Glucose 205 H Calcium 9.8 Total Bilirubin 0.9 AST 21 ALT 17 L Alkaline Phosphatase 104 Total Protein 7.4 Albumin 4.2 Lipase 64.1 TSH Urine Color STRAW Urine Appearance CLEAR Urine pH 6.0 Ur Specific [place] 1.021 Urine Protein NEGATIVE Urine Glucose (UA) 150 H Urine Ketones NEGATIVE Urine Blood NEGATIVE Urine Nitrite NEGATIVE Ur Leukocyte Esterase NEGATIVE Urine WBC (Auto) 1 Urine RBC (Auto) 1 01/03/19 13:13 WBC RBC Hgb Hct MCV MCH MCHC RDW Plt Count Seg Neutrophils % Lymphocytes % Monocytes % Eosinophils % Basophils % Absolute Neutrophils Absolute Lymphocytes Absolute Monocytes Absolute Eosinophils Absolute Basophils Sodium Potassium Chloride Carbon Dioxide Anion Gap BUN Creatinine Est GFR ( Amer) Est GFR (Non-Af Amer) Glucose Calcium Total Bilirubin AST ALT Alkaline Phosphatase Total Protein Albumin Lipase TSH 0.83 Urine Color Urine Appearance Urine pH Ur Specific [place] Urine Protein Urine Glucose (UA) Urine Ketones Urine Blood Urine Nitrite Ur Leukocyte Esterase Urine WBC (Auto) Urine RBC (Auto) 01/03/19 01/03/19 01/04/19 13:13 20:20 01:38 Troponin I 0.022 0.019 0.016 Impressions: Chest X-Ray 01/03/19 12:56 IMPRESSION: No acute abnormality of the lungs. No focal airspace opacity Chest/Abdomen CTA 01/03/19 16:58 IMPRESSION: Multiple emboli visualized in the segmental pulmonary arterial branches of both lungs. No central or saddle embolus. Small areas of patchy consolidation in the left parahilar and posterior segment right lower lobe. Assessment and Plan - Diagnosis (1) Pulmonary embolism Qualifiers: Pulmonary embolism type: unspecified Chronicity: acute Acute cor pulmonale presence: without acute cor pulmonale Qualified Code(s): I26.99 - Other pulmonary embolism without acute cor pulmonale Is this a current diagnosis for this admission?: Yes Plan: Likely preceded by right leg DVT, follow-up ultrasound, hemodynamically stable without evidence of heart strain by CT. Arira initiated discharge planning consulted for medication, follow-up 2D echo (2) Obstructive sleep apnea Is this a current diagnosis for this admission?: Yes Plan: BiPAP ordered (3) Hypertension Is this a current diagnosis for this admission?: Yes Plan: Norvasc, follow-up medication reconciliation (4) Diabetes Is this a current diagnosis for this admission?: Yes Plan: 7030 twice daily with Humalog sliding scale QIC ordered, follow-up medication reconciliation (5) Shortness of breath Is this a current diagnosis for this admission?: Yes Plan: Secondary to #1, supplemental oxygen (6) Morbid obesity Is this a current diagnosis for this admission?: Yes Plan: Morbid obesity will evaluate for metabolic cause with evaluation of thyroid function and dietitian consultation - Time Time Spent with patient: 25-34 minutes - Inpatient Certification Medical Necessity: Need Close Monitoring Due to Risk of Patient Decompensation
[2019-01-04 08:06] LABS: ABSOLUTE BASOPHILS # (AUTO) 0.1 10^3/uL (0.0-0.2); ABSOLUTE EOSINOPHILS # (AUTO) 0.2 10^3/uL (0.0-0.6); ABSOLUTE LYMPHOCYTES (AUTO) 2.3 10^3/uL (0.5-4.7); ABSOLUTE MONOCYTES (AUTO) 0.5 10^3/uL (0.1-1.4); ABSOLUTE NEUT (AUTO) 4.7 10^3/uL (1.7-8.2); EOSINOPHILS % (AUTO) 2.3 % (0-6); HEMATOCRIT 38.1 % (37.9-51.0); HEMOGLOBIN 12.8 g/dL (13.5-17.0); LYMPHOCYTES % (AUTO) 29.7 % (13-45); MEAN CORPUSCULAR HEMOGLOBIN 28.7 pg (27.0-33.4); MEAN CORPUSCULAR HGB CONC 33.6 g/dL (32.0-36.0); MEAN CORPUSCULAR VOLUME 85 fl (80-97); MONOCYTES % (AUTO) 6.7 % (3-13); PLATELET COUNT 262 10^3/uL (150-450); RED BLOOD COUNT 4.46 10^6/uL (4.35-5.55); SEGMENTED NEUTROPHILS % (AUTO) 60.3 % (42-78); TOTAL CELLS COUNTED % (AUTO) 100 %; WHITE BLOOD COUNT 7.8 10^3/uL (4.0-10.5)
[2019-01-04 08:28] LABS: ANION GAP 8 (5-19); BLOOD UREA NITROGEN 12 mg/dL (7-20); CALCIUM 9.7 mg/dL (8.4-10.2); CARBON DIOXIDE 31 mmol/L (22-30); CHLORIDE 102 mmol/L (98-107); CHOLESTEROL 220.71 mg/dL (0-200); GLUCOSE 164 mg/dL (75-110); POTASSIUM 3.9 mmol/L (3.6-5.0); SODIUM 141.2 mmol/L (137-145); TRIGLYCERIDES 95 mg/dL (<150)
[2019-01-04 08:39] LABS: DIRECT LDL 122 mg/dL (<100)
[2019-01-04] MEDS: INSULIN LISPRO 100 UNIT/ML 3 ML VIAL SUBCUT SCH ×3 (09:05→17:09)
[2019-01-04] MEDS: AMLODIPINE BESYLATE 2.5 MG TABLET PO SCH (09:11)
[2019-01-04] MEDS: DOCUSATE SODIUM 100 MG CAPSULE PO SCH ×2 (09:11→17:09)
[2019-01-04] MEDS: HUM INSULIN NPH/REG INSULIN HM 100 UNIT/1 ML 3 ML SUBCUT SCH ×2 (09:11→17:09)
[2019-01-04] MEDS: FONDAPARINUX SODIUM INJ 10 MG/0.8 ML DISP.SYRIN SUBCUT SCH (09:12)
[2019-01-04] MEDS: RIVAROXABAN 15 MG TABLET PO SCH (17:09)
[2019-01-04] MEDS ORDERED: ATORVASTATIN CALCIUM 20 MG TABLET PO SCH (22:00)
[2019-01-05] MEDS: INSULIN LISPRO 100 UNIT/ML 3 ML VIAL SUBCUT SCH ×2 (09:14→12:34)
[2019-01-05] MEDS: HUM INSULIN NPH/REG INSULIN HM 100 UNIT/1 ML 3 ML SUBCUT SCH (10:23)
[2019-01-05] MEDS: AMLODIPINE BESYLATE 2.5 MG TABLET PO SCH (10:24)
[2019-01-05] MEDS: DOCUSATE SODIUM 100 MG CAPSULE PO SCH (10:24)
[2019-01-05] MEDS: RIVAROXABAN 15 MG TABLET PO SCH (10:24)
[2019-01-05 12:42] VITALS: BP 141/92
--- NOTE | 2019-01-05 16:57 | PDOC PROGRESS REPORT ---
Subjective Progress Note for:: 01/04/19 Subjective:: Patient is resting comfortably in bed. He denies any difficulty breathing, shortness of breath or chest discomfort. Reason For Visit: PE MORBID OBESITY DM Physical Exam Vital Signs: Temp Pulse Resp BP Pulse Ox 98.7 F 70 18 128/68 H 100 01/04/19 15:09 01/04/19 15:09 01/04/19 15:09 01/04/19 15:09 01/04/19 15:09 Intake & Output 01/03/19 01/04/19 01/05/19 06:59 06:59 06:59 Intake Total 1000 480 Balance 1000 480 Weight 167.7 kg General appearance: PRESENT: no acute distress, cooperative, morbidly obese, well-developed Head exam: PRESENT: atraumatic, normocephalic Eye exam: PRESENT: conjunctiva pink, EOMI. ABSENT: scleral icterus Ear exam: PRESENT: normal external ear exam Respiratory exam: PRESENT: clear to auscultation dre, symmetrical, unlabored. ABSENT: accessory muscle use, rales, rhonchi, tachypnea, wheezes Cardiovascular exam: PRESENT: RRR, +S1, +S2 GI/Abdominal exam: PRESENT: normal bowel sounds, soft. ABSENT: distended, tenderness Rectal exam: PRESENT: deferred Gentrourinary exam: ABSENT: indwelling catheter Extremities exam: PRESENT: other - Healing wound from abscess incision and drainage left inner thigh. I did not remove any dressing. Neurological exam: PRESENT: alert, awake, oriented to person, oriented to place, oriented to time, oriented to situation, CN II-XII grossly intact. ABSENT: motor sensory deficit Psychiatric exam: PRESENT: appropriate affect, normal mood. ABSENT: agitated, anxious Focused psych exam: ABSENT: delusional, restlessness Results Laboratory Results: 01/04/19 07:48 01/04/19 07:48 01/03/19 01/04/19 01/04/19 13:13 01:38 07:48 WBC 7.8 RBC 4.46 Hgb 12.8 L Hct 38.1 MCV 85 MCH 28.7 MCHC 33.6 RDW 15.0 H Plt Count 262 Seg Neutrophils % 60.3 Lymphocytes % 29.7 Monocytes % 6.7 Eosinophils % 2.3 Basophils % 1.0 Absolute Neutrophils 4.7 Absolute Lymphocytes 2.3 Absolute Monocytes 0.5 Absolute Eosinophils 0.2 Absolute Basophils 0.1 Sodium Potassium Chloride Carbon Dioxide Anion Gap BUN Creatinine Est GFR ( Amer) Est GFR (Non-Af Amer) Glucose Calcium Triglycerides Cholesterol LDL Cholesterol Direct VLDL Cholesterol HDL Cholesterol TSH 0.83 1.38 01/04/19 07:48 WBC RBC Hgb Hct MCV MCH MCHC RDW Plt Count Seg Neutrophils % Lymphocytes % Monocytes % Eosinophils % Basophils % Absolute Neutrophils Absolute Lymphocytes Absolute Monocytes Absolute Eosinophils Absolute Basophils Sodium 141.2 Potassium 3.9 Chloride 102 Carbon Dioxide 31 H Anion Gap 8 BUN 12 Creatinine 0.99 Est GFR ( Amer) > 60 Est GFR (Non-Af Amer) > 60 Glucose 164 H Calcium 9.7 Triglycerides 95 Cholesterol 220.71 H LDL Cholesterol Direct 122 H VLDL Cholesterol 19.0 HDL Cholesterol 56 TSH 01/03/19 01/03/19 01/04/19 13:13 20:20 01:38 Troponin I 0.022 0.019 0.016 01/04/19 07:48 Troponin I < 0.012 Impressions: Chest X-Ray 01/03/19 12:56 IMPRESSION: No acute abnormality of the lungs. No focal airspace opacity Chest/Abdomen CTA 01/03/19 16:58 IMPRESSION: Multiple emboli visualized in the segmental pulmonary arterial branches of both lungs. No central or saddle embolus. Small areas of patchy consolidation in the left parahilar and posterior segment right lower lobe. Assessment and Plan - Diagnosis (1) Pulmonary embolism Qualifiers: Pulmonary embolism type: other Chronicity: acute Acute cor pulmonale presence: without acute cor pulmonale Qualified Code(s): I26.99 - Other pulmonary embolism without acute cor pulmonale Is this a current diagnosis for this admission?: Yes Plan: The patient was admitted with multiple pulmonary emboli bilaterally. He is started on Xarelto with an intention of discharged home tomorrow. He was short of breath initially but his breathing has become more comfortable. He is on room air during the day. He will continue his Xarelto as an outpatient. We will schedule an appointment with the [facility] for follow-up. He does report that he has Medicare part D with prescription coverage and he should be able to obtain the Xarelto without much difficulty. (2) Obstructive sleep apnea Is this a current diagnosis for this admission?: Yes Plan: This is a chronic diagnosis for the patient. He does use his CPAP at home. In fact the mask that he was using here was very comfortable and if it will improve compliance I encouraged him to take at home. (3) Hypertension Qualifiers: Hypertension type: essential hypertension Qualified Code(s): I10 - Essential (primary) hypertension Is this a current diagnosis for this admission?: Yes Plan: The patient was on Hyzaar (100/25) daily but his blood pressures here are normal with 2.5 mg of amlodipine. I will continue the amlodipine for now. I explained to him that the recent losartan dose was probably too much and would cause hypotension. He has pulses in the 60s and occasionally above 70. Will consider low-dose metoprolol as well as aspirin. His troponins bumped slightly but not significantly and this is likely due to the multiple pulmonary emboli. (4) Diabetes Qualifiers: Diabetes mellitus type: type 2 Diabetes mellitus termite treater helper insulin use: with termite treater helper use Diabetes mellitus complication status: without complication Qualified Code(s): E11.9 - Type 2 diabetes mellitus without complications; Z79.4 - joint terminal attack controller (current) use of insulin Is this a current diagnosis for this admission?: Yes Plan: The patient uses Levemir and NovoLog at home. He was on 7030 here and I calculated approximate doses of Levemir based on his dosing here. In addition I provided a prescription for NovoLog with a copy of the inpatient sliding scale that we use. The patient should continue a cardiac/diabetic diet. (5) Shortness of breath Is this a current diagnosis for this admission?: Yes Plan: This is secondary to the multiple pulmonary emboli and has resolved (6) Morbid obesity Is this a current diagnosis for this admission?: Yes Plan: There are multiple comorbidities that are worsened by his morbid obesity. These include his diabetes, hypertension and cardiac risk. He should continue aggressive dieting and gradually introduce an exercise program. I will defer to his primary care providers for management. - Time Time Spent with patient: 25-34 minutes Medications reviewed and adjusted accordingly: Yes Anticipated discharge: Home Within: within 24 hours
--- NOTE | 2019-01-05 17:06 | PDOC DISCHARGE SUMMARY ---
General - Admit/Disc Date/PCP Admission Date/Primary Care Provider: 01/03/19 19:56 KURT PARKS MD Discharge Date: 01/05/19 - Discharge Diagnosis (1) Pulmonary embolism Is this a current diagnosis for this admission?: Yes Summary: The patient sustained multiple pulmonary emboli. It is unlikely that all of these occurred just prior to admission. The more likely scenario is that he has been having small emboli sporadically and it got to a point where it affected his breathing. He was started on Xarelto and I sent prescription to his pharmacy to continue the same. I told him that there are certain instances where a deep vein thrombosis with pulmonary embolus require limited anticoagulation, typically 6 months. But in this case with the multiple emboli noted it is likely he will be on the Xarelto for a longer term. He may consider work-up by hematology for a coagulopathy. (2) Obstructive sleep apnea Is this a current diagnosis for this admission?: Yes Summary: The patient will take home the BiPAP mask used here in the hospital as it fits quite comfortably. He should continue to use his BiPAP nightly. (3) Hypertension Is this a current diagnosis for this admission?: Yes Summary: I have decided to discharge the patient on the amlodipine 2.5 mg as I believe the losartan with hydrochlorothiazide (100/25 mg) would create hypotension. His pulse is quite low and so I did not add beta-sukumar at this time. (4) Diabetes Is this a current diagnosis for this admission?: Yes Summary: New prescriptions were provided for his Levemir and NovoLog. A copy of the sliding scale was also forwarded to the pharmacy for the patient to use with AC and at bedtime blood checks. (5) Shortness of breath Is this a current diagnosis for this admission?: Yes Summary: Secondary to the pulmonary emboli. His dyspnea has resolved. (6) Morbid obesity Is this a current diagnosis for this admission?: Yes Summary: The patient will benefit from ongoing diet and initiating exercise program. Consider an aggressive weight management program. - Additional Information Resuscitation Status: Full Code Discharge Diet: Cardiac, Diabetic Discharge Activity: Activity As Tolerated, Balance Activity w/Rest Prescriptions: Amlodipine Besylate [Norvasc 2.5 mg Tablet] 2.5 mg PO DAILY 30 Days #30 tablet Atorvastatin Calcium [Lipitor 20 mg Tablet] 20 mg PO QHS 30 Days #30 tablet Insulin Detemir [Levemir] 22 unit SQ BID 30 Days #15 ml Rivaroxaban [Xarelto] 20 mg PO DAILY 30 Days #30 tablet Home Medications: Albuterol Sulfate [Albuterol Sulfate Hfa] 2 puff IH Q6HP PRN 01/04/19 Insulin Detemir [Levemir] 0 units SUBCUT ASDIR PRN 01/04/19 Omeprazole 40 mg PO Q6AM 01/04/19 Pioglitazone HCl [Actos] 30 mg PO DAILY 01/04/19 Acetaminophen [Tylenol 325 mg Tablet] 650 mg PO Q4HP PRN tablet 01/05/19 Amlodipine Besylate [Norvasc 2.5 mg Tablet] 2.5 mg PO DAILY 30 Days #30 tablet 01/05/19 Atorvastatin Calcium [Lipitor 20 mg Tablet] 20 mg PO QHS 30 Days #30 tablet 01/05/19 Insulin Aspart [Novolog Flexpen] 0 units SUBCUT ACHS 30 Days #15 ml 01/05/19 Insulin Detemir [Levemir] 22 unit SQ BID 30 Days #15 ml 01/05/19 Rivaroxaban [Xarelto] 20 mg PO DAILY 30 Days #30 tablet 01/05/19 History of Present Illness Patient complains of: Chest pain History of Present Illness: SCOTTY BEARDEN JR is a 43 year old male with a history of morbid obesity, obstructive sleep apnea, hypertension and insulin-dependent diabetes mellitus. He has had several weeks of right lower extremity swelling with multiple episodes of sharp chest pain. It is nonradiating and intermittent. It is retrosternal and associated with shortness of breath. He presented to the emergency department and on review of a CT angiogram he exhibited multiple pulmo nary emboli bilaterally. No obvious source for this occurrence could be identified. He was referred to the hospital service for admission. Hospital Course Hospital Course: The patient had a relatively unremarkable hospital course. He was started on anticoagulation. His troponins were above 0.012 but below 0.034 and likely more the result of the pulmonary emboli with strain. In addition his losartan with hydrochlorthiazide was replaced with a small dose of amlodipine and this has kept his blood pressure stable. At the time of discharge we discussed new medications added to the regimen for long-term benefit. These include atorvastatin, baby aspirin and the importance of good blood pressure control. He will follow-up at the [facility]. Prescriptions were faxed to rule out pharmacy on [address] Physical Exam Vital Signs: Temp Pulse Resp BP Pulse Ox 98.5 F 94 14 141/92 H 97 01/05/19 12:41 01/05/19 12:41 01/05/19 12:41 01/05/19 12:41 01/05/19 12:41 Intake & Output 01/04/19 01/05/19 01/06/19 06:59 06:59 06:59 Intake Total 1000 1580 Balance 1000 1580 Weight 167.7 kg 172.1 kg Results Laboratory Results: 01/04/19 07:48 01/04/19 07:48 01/03/19 01/03/19 01/04/19 13:13 20:20 01:38 Troponin I 0.022 0.019 0.016 01/04/19 07:48 Troponin I < 0.012 Impressions: Chest X-Ray 01/03/19 12:56 IMPRESSION: No acute abnormality of the lungs. No focal airspace opacity Chest/Abdomen CTA 01/03/19 16:58 IMPRESSION: Multiple emboli visualized in the segmental pulmonary arterial branches of both lungs. No central or saddle embolus. Small areas of patchy consolidation in the left parahilar and posterior segment right lower lobe. Qualifiers - * PATIENT BEING DISCHARGED WITH ANY OF THE FOLLOWING DIAGNOSIS: VTE (PE or DVT) VTE patient discharged on overlapping Therapy?: No Reason(s) for not prescribing Overlap Therapy:: Not indicated Acute Heart Failure - Is this a Heart Failure Patient?: No Plan Discharge Plan: Discharge to home. Follow-up with [facility]. Time Spent: Greater than 30 Minutes
--- NOTE | 2019-01-05 22:07 | XCELERA REPORT ---
[address] [address] Transthoracic Echocardiogram Report Name: MONSIHA VARGAS SCOTTY Age: 43 yrs Gender: Male : 1975 Patient Status: Inpatient Patient Location: [address] [place], [place] [id number] Study Date: 01/04/2019 01:15 PM Height: 69 in Weight: 390 lb BSA: 2.7 m2 Procedure: A two-dimensional transthoracic echocardiogram with color flow and Doppler was performed. Study Quality: Technically suboptimal. The study was technically limited with all images being suboptimal in quality. Reason For Study: pe History: PULMONARY EMBOLISM. Ordering Physician: ABIGAIL TONG Performed By: Capri Talavera Interpretation Summary Due to very poor qaulity cannot coment on valvular stenosis or regurgitation.Unable to estimate RVSP. Poor qaulity study.Probably no LVH.Probably no regional wall motion abnormality.Grossly normal LV size.Normal LV systolic and diastolic function. The left atrial size is normal. Not a study to assess for ASD,PFO,or VSD. Due to very poor qaulity cannot coment on valvular stenosis or regurgitation.Unable to estimate RVSP. MMode/2D Measurements & Calculations RVDd: 3.3 cm LVIDd: 4.8 cm FS: 38.7 % Ao root diam: 3.8 cm IVSd: 1.1 cm LVIDs: 3.0 cm EDV(Teich): 109.5 ml Ao root area: 11.6 cm2 LVPWd: 1.2 cm ESV(Teich): 34.0 ml EF(Teich): 68.9 % Doppler Measurements & Calculations MV E max ras: MV dec slope: Ao V2 max: LV V1 max P.9 cm/sec 518.7 cm/sec2 94.8 cm/sec 4.5 mmHg MV A max ras: MV dec time: 0.19 secAo max PG: LV V1 max: 88.9 cm/sec 3.6 mmHg 105.8 cm/sec MV E/A: 1.1 PA V2 max: 88.5 cm/sec PA max P.1 mmHg Left Ventricle Poor qaulity study.Probably no LVH.Probably no regional wall motion abnormality.Grossly normal LV size.Normal LV systolic and diastolic function. Right Ventricle The right ventricle is not well visualized secondary to technical limitations. Atria Right atrium not well visualized secondary to technical limitations. The left atrial size is normal. Not a study to assess for ASD,PFO,or VSD. : ABIGAIL TONG > Suad Baumann
== END 2019-01-05 14:06 | disposition home or self-care (01) | DRG 176 ==
LOC: ER 11:42 → EH 19:56 → 3W 01-04 06:17
PROVIDERS: ADMIT Internal Medicine; ATTEND Internal Medicine
DX: I26.99 Other pulmonary embolism without acute cor pulmonale (principal); Z68.43 Body mass index [BMI] 50.0-59.9, adult; I10 Essential (primary) hypertension; E11.8 Type 2 diabetes mellitus with unspecified complications; G47.33 Obstructive sleep apnea (adult) (pediatric); E66.01 Morbid (severe) obesity due to excess calories; Z79.4 Long term (current) use of insulin; Z79.51 Long term (current) use of inhaled steroids; Z79.899 Other long term (current) drug therapy
CPT/HCPCS: 36415; 71046; 71275; 80048; 80053; 80061; 81001; 82962; 83036; 83690; 84443; 84484; 85025; 85610; 85730; 87040; 87186; 93005; 93010; 93306; 94660; J1652; J1815; J7030

== ENCOUNTER 2019-07-10 17:56 | Emergency (ER) | payer MEDICARE, MEDICAID, OTHER ==
[2019-07-10 19:13] LABS: ABSOLUTE BASOPHILS # (AUTO) 0.1 10^3/uL (0.0-0.2); ABSOLUTE EOSINOPHILS # (AUTO) 0.3 10^3/uL (0.0-0.6); ABSOLUTE MONOCYTES (AUTO) 0.9 10^3/uL (0.1-1.4); BASOPHILS % (AUTO) 0.5 % (0-2); EOSINOPHILS % (AUTO) 1.7 % (0-6); TOTAL CELLS COUNTED % (AUTO) 100 %
[2019-07-10 19:16] LABS: ABSOLUTE LYMPHOCYTES (AUTO) 3.1 10^3/uL (0.5-4.7); ABSOLUTE NEUT (AUTO) 10.7 10^3/uL (1.7-8.2); HEMATOCRIT 39.2 % (37.9-51.0); HEMOGLOBIN 13.2 g/dL (13.5-17.0); MEAN CORPUSCULAR HEMOGLOBIN 28.7 pg (27.0-33.4); MEAN CORPUSCULAR HGB CONC 33.8 g/dL (32.0-36.0); MEAN CORPUSCULAR VOLUME 85 fl (80-97); MONOCYTES % (AUTO) 5.8 % (3-13); PLATELET COUNT 310 10^3/uL (150-450); RED BLOOD COUNT 4.61 10^6/uL (4.35-5.55)
[2019-07-10 19:30] LABS: ALKALINE PHOSPHATASE 128 U/L (38-126); ANION GAP 10 (5-19); ASPARTATE AMINO TRANSFERASE 27 U/L (17-59); BILIRUBIN,DIRECT 0.2 mg/dL (0.0-0.4); BILIRUBIN,TOTAL 0.9 mg/dL (0.2-1.3); BLOOD UREA NITROGEN 14 mg/dL (7-20); CALCIUM 9.4 mg/dL (8.4-10.2); CARBON DIOXIDE 32 mmol/L (22-30); CHLORIDE 98 mmol/L (98-107); GLUCOSE 145 mg/dL (75-110); POTASSIUM 3.5 mmol/L (3.6-5.0); TOTAL PROTEIN 7.7 g/dL (6.3-8.2)
--- NOTE | 2019-07-10 19:30 | ER Document Report ---
ED Medical Screen (RME) - General Chief Complaint: Facial Swelling Stated Complaint: FACIAL SWELLING/POSSIBLE ALLERGIC REACTION Time Seen by Provider: 07/10/19 18:17 Primary Care Provider: KANDIS MARSH MD [Primary Care Provider] - Follow up as needed Mode of Arrival: Ambulatory Information source: Patient Notes: 44-year-old male presents emergency department with nasal swelling redness. Reports he was treated with medication for gout. He reports he woke up the next day with his no swelling and redness. He went back to his provider and they treated him with clindamycin. He reports his nose is very tender to touch he has some swelling to the upper lip. He denies fever vomiting diarrhea. I have greeted and performed a rapid initial assessment of this patient. A comprehensive ED assessment and evaluation of the patient, analysis of test results and completion of the medical decision making process will be conducted by additional ED providers. TRAVEL OUTSIDE OF THE [place] IN LAST 30 DAYS: No - Related Data Allergies/Adverse Reactions: No Known Drug Allergies Allergy (Verified 01/03/19 11:43) bananas Allergy (Uncoded 01/03/19 11:43) Home Medications: INsulin. Xarelto. Atorvastatin. Farxiga. Omeprzole. Clindamycin. HCTZ. Pioglitazone Past Medical History - Social History Chew tobacco use (# tins/day): No Frequency of alcohol use: None Drug Abuse: None Family history: None - Past Medical History Cardiac Medical History: Reports: Hx Hypercholesterolemia, Hx Hypertension Pulmonary Medical History: Reports: Hx Asthma, Hx Sleep Apnea - CPAP at night Endocrine Medical History: Reports: Hx Diabetes Mellitus Type 2 Renal/ Medical History: Denies: Hx Peritoneal Dialysis Psychiatric Medical History: Reports: Hx Depression Past Surgical History: Reports: Hx Nose Surgery, Hx Orthopedic Surgery - rt leg infection - Immunizations Immunizations up to date: Yes Hx Diphtheria, Pertussis, Tetanus Vaccination: Yes Physical Exam - Vital signs Vitals: Temp Pulse Resp BP Pulse Ox 99.4 F 110 H 18 144/75 H 97 07/10/19 17:59 07/10/19 17:59 07/10/19 17:59 07/10/19 17:59 07/10/19 17:59 Course - Vital Signs Vital signs: Temp Pulse Resp BP Pulse Ox 99.0 F 101 H 18 146/98 H 97 07/10/19 19:02 07/10/19 19:02 07/10/19 17:59 07/10/19 19:02 07/10/19 19:02 - Laboratory Result Diagrams: 07/10/19 18:45 07/10/19 18:45 Laboratory results interpreted by me: 07/10/19 18:45 WBC 15.0 H Hgb 13.2 L RDW 15.0 H Absolute Neuts (auto) 10.7 H Doctor's Discharge - Discharge Referrals: KANDIS MARSH MD [Primary Care Provider] - Follow up as needed
--- NOTE | 2019-07-10 21:27 | RADIOLOGY REPORT (SQ) ---
EXAM DESCRIPTION: CT MAXILLOFACIAL WITH IV CONTRAST COMPLETED DATE/TME: 07/10/2019 18:22 CLINICAL HISTORY: 44 years, Male, nasal abscess This exam was performed according to our departmental dose-optimization program which includes automated exposure control, adjustment of the mA and/or kVp according to patient size and/or use of iterative reconstruction technique where applicable. FINDINGS: Orbits are intact. Globes are intact and not proptotic. There is moderate thickening of the soft tissues of the base of the nose and involving the upper lip, more prominent on the left side. No significant fluid collection is noted. Parotid and submandibular glands are within normal limits. Mandible is intact. Nasal bony septum is midline. Nasal bones are intact. IMPRESSION: Mild soft tissue swelling in the base of the nose and involving the upper lip, more prominent on the left side without any significant fluid collections are evident be due to infection or inflammation.
[2019-07-10] MEDS ORDERED: POTASSIUM CHLORIDE 10 MEQ TABLET.ER PO ONE (21:54)
[2019-07-10] MEDS ORDERED: FAMOTIDINE 20 MG TABLET PO ONE (21:54)
[2019-07-10] MEDS ORDERED: DIPHENHYDRAMINE HCL 50 MG CAPSULE PO ONE (21:54)
--- NOTE | 2019-07-10 21:59 | ER Document Report ---
ED General - General Chief Complaint: Facial Swelling Stated Complaint: FACIAL SWELLING/POSSIBLE ALLERGIC REACTION Time Seen by Provider: 07/10/19 18:17 Primary Care Provider: KANDIS MARSH MD [Primary Care Provider] - Follow up tomorrow Mode of Arrival: Ambulatory Information source: Patient Notes: 44-year-old male presented to ED for complaint of swelling to the nose since he put Lamisil on his foot 1 day woke up the next day which is now swelling. I am concerned that he may have tried some of the Lamisil on his nose by not washing his hand well when he was using it on his foot. He states he went to his primary care doctor they started him on clindamycin for an infection. When patient was in the pit area a CT of the face was done as well as a CBC and chemistry. There is no obvious cause for the swelling of his nose except for the fact that he used Lamisil on his foot. Patient is alert oriented respirations regular nonlabored speaking in full sentences. His potassium is mildly low we will give him 40 potassium p.o. We will also treat him with Pepcid and Benadryl for his swelling to his nose. Will recheck face and nose after he has received his Pepcid and Benadryl. TRAVEL OUTSIDE OF THE [place] IN LAST 30 DAYS: No - HPI Onset: Other - Put the Lamisil on his foot on Thursday and woke up with his nose swollen Onset/Duration: Gradual Quality of pain: Pressure Associated symptoms: Other - Redness and swelling to his nose Exacerbated by: Denies Relieved by: Denies Similar symptoms previously: Yes Recently seen / treated by doctor: Yes - Related Data Allergies/Adverse Reactions: No Known Drug Allergies Allergy (Verified 01/03/19 11:43) bananas Allergy (Uncoded 01/03/19 11:43) Home Medications: INsulin. Xarelto. Atorvastatin. Farxiga. Omeprzole. Clindamycin. HCTZ. Pioglitazone Past Medical History - General Information source: Patient - Social History Smoking Status: Never Smoker Chew tobacco use (# tins/day): No Frequency of alcohol use: None Drug Abuse: None Lives with: Family Family History: Reviewed & Not Pertinent, Hypertension Patient has suicidal ideation: No Patient has homicidal ideation: No - Past Medical History Cardiac Medical History: Reports: Hx Hypercholesterolemia, Hx Hypertension Pulmonary Medical History: Reports: Hx Asthma, Hx Sleep Apnea - CPAP at night EENT Medical History: Reports: None Neurological Medical History: Reports: None Endocrine Medical History: Reports: Hx Diabetes Mellitus Type 2 Renal/ Medical History: Reports: None Malignancy Medical History: Reports None GI Medical History: Reports: None Musculoskeletal Medical History: Reports None Skin Medical History: Reports None Psychiatric Medical History: Reports: Hx Depression Traumatic Medical History: Reports: None Infectious Medical History: Reports: None Past Surgical History: Reports: Hx Nose Surgery - Growth removed from his nose, Hx Orthopedic Surgery - rt leg infection - Immunizations Immunizations up to date: Yes Hx Diphtheria, Pertussis, Tetanus Vaccination: Yes Review of Systems - Review of Systems Constitutional: No symptoms reported EENT: No symptoms reported, Nose pain - Pain and swelling Cardiovascular: No symptoms reported Respiratory: No symptoms reported Gastrointestinal: No symptoms reported Genitourinary: No symptoms reported Male Genitourinary: No symptoms reported Musculoskeletal: No symptoms reported Skin: No symptoms reported Hematologic/Lymphatic: No symptoms reported Neurological/Psychological: No symptoms reported -: Yes All other systems reviewed and negative Physical Exam - Vital signs Vitals: Temp Pulse Resp BP Pulse Ox 99.4 F 110 H 18 144/75 H 97 07/10/19 17:59 07/10/19 17:59 07/10/19 17:59 07/10/19 17:59 07/10/19 17:59 Interpretation: Normal - General General appearance: Appears well, Alert - HEENT Head: Normocephalic, Atraumatic Eyes: Normal Pupils: PERRL Ears: Normal External canal: Normal Tympanic membrane: Normal Sinus: Normal Nasal: Swelling, Other - Redness and swelling to the external nose Mouth/Lips: Normal Mucous membranes: Normal Pharynx: Normal Neck: Normal - Respiratory Respiratory status: No respiratory distress Chest status: Nontender Breath sounds: Normal Chest palpation: Normal - Cardiovascular Rhythm: Regular Heart sounds: Normal auscultation Murmur: No - Abdominal Inspection: Normal Distension: No distension Bowel sounds: Normal Tenderness: Nontender Organomegaly: No organomegaly - Back Back: Normal, Nontender - Extremities General upper extremity: Normal inspection, Nontender, Normal color, Normal ROM, Normal temperature General lower extremity: Normal inspection, Nontender, Normal color, Normal ROM, Normal temperature, Normal weight bearing. No: Sky's sign - Neurological Neuro grossly intact: Yes Cognition: Normal Orientation: AAOx4 [place] Coma Scale Eye Opening: Spontaneous Kate Coma Scale Verbal: Oriented Kate Coma Scale Motor: Obeys Commands Kate Coma Scale Total: 15 Speech: Normal Motor strength normal: LUE, RUE, LLE, RLE Sensory: Normal - Psychological Associated symptoms: Normal affect, Normal mood - Skin Skin Temperature: Warm Skin Moisture: Dry Skin Color: Normal Course - Re-evaluation Re-evalutation: 07/11/19 00:[address] with patient. Patient was discharged home after receiving Pepcid and Benadryl. He was instructed to continue with his antibiotics and follow-up with his primary care doctor. Patient verbalized understanding and agreement with treatment plan patient was discharged home. - Vital Signs Vital signs: Temp Pulse Resp BP Pulse Ox 98.9 F 99 17 140/82 H 96 07/10/19 23:18 07/10/19 23:18 07/10/19 23:18 07/10/19 23:18 07/10/19 23:18 - Laboratory Result Diagrams: 07/10/19 18:45 07/10/19 18:45 Laboratory results interpreted by me: 07/10/19 07/10/19 18:45 18:45 WBC 15.0 H Hgb 13.2 L RDW 15.0 H Absolute Neuts (auto) 10.7 H Potassium 3.5 L Carbon Dioxide 32 H Creatinine 1.45 H Est GFR (MDRD) Non-Af 53 L Glucose 145 H Alkaline Phosphatase 128 H - Diagnostic Test Radiology reviewed: Image reviewed, Reports reviewed Discharge - Discharge Clinical Impression: Swelling of nose Condition: Stable Disposition: HOME, SELF-CARE Additional Instructions: ACUTE ALLERGIC REACTION: Your symptoms are due to an allergic reaction. Allergy can cause hives, swelling of the hands, feet, and face, hoarseness, and difficulty swallowing or breathing. It may be due to exposure to medication, animal dander, foods, infection, or insect bites. Medication is a common cause, even when prior use of this same medication caused no problems. Acute treatment may include adrenalin and antihistamines. Usually, the specific allergic agent can't be identified unless repeated episodes occur. Home treatment includes the following: (1) Stop any suspicious medications. This will be discussed with you. (2) Oral antihistamines for the next four to five days. Example, diphenhydramine (Benadryl) every four hours. (3) You may also use cimetidine (Tagamet), ranitidine (Zantac), or famotidine (Pepcid) every four hours if diphenhydramine is not controlling itching and hives. (4) Avoid aspirin until the hives completely disappear. (5) Avoid hot baths or showers until the hives are completely gone. Call the doctor if faintness, difficulty swallowing, tightness in the chest, or wheezing occurs. ACID-SUPPRESSING MEDICATION: You have a prescription for medicine which reduces the stomach's secretion of acid. Examples include Zantac, Tagament, and Pepcid. These drugs are often used to allow healing of ulcers or esophagitis. They may be needed to prevent recurrence of ulcers in some patients, or to prevent damage from acid reflux in the esophagus. Take all medication as prescribed, even after the pain is gone. Regular antacids may be added as needed if you have symptoms while taking this medicine. These medications sometimes are prescribed for allergic reactions because they have anti-histaminic effects and relieve the rash and itching of the reaction. There are usually no side effects from this medication. But, in rare cases and particularly in the elderly, serious problems can occur. Contact your doctor if there is fever, rash, hallucinations, confusion, or unusual bruising. Contact your doctor at once if you develop lightheadedness, black or bloody stool, or bloody vomitus. ANTIHISTAMINES: An antihistamine has been given and/or prescribed to control your symptoms. Antihistamines are used for many reasons, including itching, watering eyes, runny nose, allergic swelling, hives, and insect stings. Antihistamines may cause drowsiness, especially with the first dose. Do not operate machinery or drive while under the effects of the medication. Other common side effects include dry mouth and eyes. In older persons, antihistamines can occasionally cause urinary retention, constipation, and trouble focusing the eyes. Do not combine the medication with alcohol, or with any other medication without talking to your doctor. USE OF DIPHENHYDRAMINE: The use of diphenhydramine (Benadryl) has been recommended to control allergic symptoms. The 25 mg strength is available over- the-counter, as well as the elixir. This antihistamine is used for many symptoms. It's useful for itching, watering eyes and nose, allergic swelling, hives, and insect stings. The medication can be repeated four times daily. Age Elixir (12.5 mg/tsp) 25 mg pill 2-3 yr 1/2 tsp 4-8 yr 1 tsp 9-14 yr 2 tsp one tab adult 1-2 tabs Antihistamines may cause drowsiness, especially with the first dose. Do not operate machinery or drive while under the effects of the medication. Do not combine the medication with alcohol, or with any other medication without ta lking to your doctor. FOLLOW-UP CARE: If you have been referred to a physician for follow-up care, call the physicians office for an appointment as you were instructed or within the next two days. If you experience worsening or a significant change in your symptoms, notify the physician immediately or return to the Emergency Department at any time for re-evaluation. Prescriptions: Famotidine [Pepcid 20 mg Tablet] 20 mg PO DAILY #12 tablet Referrals: KANDIS MARSH MD [Primary Care Provider] - Follow up tomorrow
[2019-07-10 23:23] VITALS: BP 140/82
== END 2019-07-10 23:23 | disposition home or self-care (01) ==
LOC: ER 17:56
DX: R22.9 Localized swelling, mass and lump, unspecified (principal); E78.00 Pure hypercholesterolemia, unspecified; I10 Essential (primary) hypertension; E11.9 Type 2 diabetes mellitus without complications; Z79.4 Long term (current) use of insulin; Z79.01 Long term (current) use of anticoagulants
CPT/HCPCS: 99284; 36415; 85025; 80053; 70487; A9270 ×3

== ENCOUNTER 2020-03-25 03:45 | Emergency (ER) | payer MEDICARE, MEDICAID ==
--- NOTE | 2020-03-25 08:38 | ER Document Report ---
ED General - General Chief Complaint: Abscess Stated Complaint: POSSIBLE INFECTION BACK OF HEAD Primary Care Provider: KANDIS MARSH MD [Primary Care Provider] - Follow up as needed Notes: 44-year-old male with past medical history of hypertension, diabetes on blood thinners presenting today due to developing a small wound on the back of his head due to his CPAP a week ago. He noticed this area began to get swollen and tender. He went to his primary care provider 2 days ago and diagnosed him with an abscess and gave him clindamycin and diclofenac. Patient reports that the pain and the swelling has decreased but he still notices pressure. He has no pain with neck flexion or extension. Has a mild headache at that location. Denies any fevers chills or additional symptoms. He states he did have small wounds on the top of his head similar to the presentation on the back of his head but those resolved when he change the locations of the bands on his cpap. TRAVEL OUTSIDE OF THE [place] IN LAST 30 DAYS: No - Related Data Allergies/Adverse Reactions: metformin Allergy (Verified 03/25/20 03:52) bananas Allergy (Uncoded 01/03/19 11:43) Past Medical History - Social History Smoking Status: Never Smoker Frequency of alcohol use: None Drug Abuse: None Family History: Reviewed & Not Pertinent, Hypertension Patient has homicidal ideation: No - Past Medical History Cardiac Medical History: Reports: Hx Hypercholesterolemia, Hx Hypertension Pulmonary Medical History: Reports: Hx Asthma, Hx Sleep Apnea - CPAP at night Endocrine Medical History: Reports: Hx Diabetes Mellitus Type 2 Renal/ Medical History: Denies: Hx Peritoneal Dialysis Psychiatric Medical History: Reports: Hx Depression Past Surgical History: Reports: Hx Nose Surgery - Growth removed from his nose, Hx Orthopedic Surgery - rt leg infection - Immunizations Immunizations up to date: Yes Hx Diphtheria, Pertussis, Tetanus Vaccination: Yes Review of Systems - Review of Systems Constitutional: No symptoms reported EENT: No symptoms reported Cardiovascular: No symptoms reported Respiratory: No symptoms reported Gastrointestinal: No symptoms reported Genitourinary: No symptoms reported Male Genitourinary: No symptoms reported Musculoskeletal: No symptoms reported Skin: See HPI Hematologic/Lymphatic: No symptoms reported Neurological/Psychological: No symptoms reported Physical Exam - Vital signs Vitals: Temp Pulse Resp BP Pulse Ox 97.9 F 89 18 109/84 99 03/25/20 03:50 03/25/20 03:50 03/25/20 03:50 03/25/20 03:50 03/25/20 03:50 Interpretation: Normal - Notes Notes: Adult General: GENERAL: Alert, interacts well. No acute distress, obese male HEAD: Normocephalic, atraumatic EYES: Pupils equal, round and reactive to light. Extraocular movements intact. ENT: Airway patent. Nares patent. NECK: Full range of motion. Supple. Trachea midline. No lymphadenopathy. No neck pain, no nuchal rigidity. LUNGS: Clear to auscultation bilaterally, no wheezes, rales, or rhonchi. No respiratory distress. Nontender chest wall. HEART: Regular rate and rhythm. No murmurs, rubs or gallops. ABDOMEN: Soft, nontender. GENITOURINARY: Deferred EXTREMITIES: Moves all 4 extremities spontaneously. BACK: Moves all extremities with full range of motion. NEUROLOGICAL: Alert and oriented x3. Normal speech. Strength 5/ 5 in all extremities. PSYCH: Normal affect, normal mood. SKIN: Warm, tender to touch back of neck. 5.5 cm with mild fluctuate, overlying excoriation, and warmth. Course - Re-evaluation Re-evalutation: 03/25/20 11:53 CT scan shows no abscess, it does show mild inflammatory changes. I discussed case with Dr. Pal who recommends attempting needle aspiration and if no pus, IV vancomycin and close outpatient follow up. Needle aspiration was performed. No pus was able to be aspirated, fluid was aspirated. Patient states that he does have some symptom relief after the aspiration. CBC shows white count of 13.7. CMP shows glucose of 207 and alk phos of 130. 03/25/20 12:49 I was notified by HERMELINDO Bernabe that patients IV is no longer working and lab has been unsuccessful at repeat IV. I will change the antibiotic to IM Rocephin. This was confirmed with Dr. Pal. I discussed with patient that he will need to continue taking the antibiotic prescribed by his primary care provider and that he needs close follow up with his primary care in the next few days. I discussed emergent return precautions to include fever, chills, worsening symptoms, no improvement or any additional symptoms that are worrisome to the patient. Patient acknowledges and verbalizes understanding of instructions and plan. All questions answered. - Vital Signs Vital signs: Temp Pulse Resp BP Pulse Ox 97.9 F 91 18 136/70 H 99 03/25/20 03:50 03/25/20 12:42 03/25/20 12:42 03/25/20 12:42 03/25/20 12:42 - Laboratory Result Diagrams: 03/25/20 09:50 03/25/20 09:50 Laboratory results interpreted by me: 03/25/20 03/25/20 09:50 09:50 WBC 13.7 H RDW 14.9 H Absolute Neuts (auto) 10.3 H Carbon Dioxide 33 H Glucose 207 H Alkaline Phosphatase 130 H Procedures - Needle Aspiration Neck Type of Aspiration: Fine Type: Simple Needle apsiration pre-procedure: Sterile PPE donned Anesthetic type: 1% Lidocaine w/epi Discharge - Discharge Clinical Impression: Inflammation, skin Condition: Stable Disposition: HOME, SELF-CARE Additional Instructions: Your CT scan showed no underlying abscess. No pus was able to be drained after needle aspiration. Please keep the area clean and dry. You have been given a dose of IM antibiotics in the emergency department. Please continue to take the oral antibiotics prescribed by your primary care provider. I recommend a foll ow-up with your primary care provider. If you have worsening symptoms or development of new symptoms please follow-up to the emergency department. Referrals: KANDIS MARSH MD [Primary Care Provider] - Follow up as needed
[2020-03-25] MEDS ORDERED: LIDOCAINE 1%/EPINEPHRINE INJ 20 ML VIAL INJ ONE (08:39)
[2020-03-25 10:06] LABS: ABSOLUTE BASOPHILS # (AUTO) 0.1 10^3/uL (0.0-0.2); ABSOLUTE EOSINOPHILS # (AUTO) 0.3 10^3/uL (0.0-0.6); ABSOLUTE LYMPHOCYTES (AUTO) 2.2 10^3/uL (0.5-4.7); ABSOLUTE MONOCYTES (AUTO) 0.8 10^3/uL (0.1-1.4); ABSOLUTE NEUT (AUTO) 10.3 10^3/uL (1.7-8.2); EOSINOPHILS % (AUTO) 2.3 % (0-6); HEMATOCRIT 41.9 % (37.9-51.0); HEMOGLOBIN 13.9 g/dL (13.5-17.0); LYMPHOCYTES % (AUTO) 15.7 % (13-45); MEAN CORPUSCULAR HEMOGLOBIN 28.1 pg (27.0-33.4); MEAN CORPUSCULAR HGB CONC 33.3 g/dL (32.0-36.0); MEAN CORPUSCULAR VOLUME 84 fl (80-97); PLATELET COUNT 312 10^3/uL (150-450); RED BLOOD COUNT 4.96 10^6/uL (4.35-5.55); RED CELL DISTRIBUTION WIDTH 14.9 % (11.5-14.0); TOTAL CELLS COUNTED % (AUTO) 100 %; WHITE BLOOD COUNT 13.7 10^3/uL (4.0-10.5)
[2020-03-25 10:22] LABS: ALKALINE PHOSPHATASE 130 U/L (38-126); ANION GAP 9 (5-19); ASPARTATE AMINO TRANSFERASE 27 U/L (17-59); BILIRUBIN,DIRECT 0.3 mg/dL (0.0-0.4); BILIRUBIN,TOTAL 1.1 mg/dL (0.2-1.3); BLOOD UREA NITROGEN 19 mg/dL (7-20); CALCIUM 9.4 mg/dL (8.4-10.2); CARBON DIOXIDE 33 mmol/L (22-30); CHLORIDE 98 mmol/L (98-107); GLUCOSE 207 mg/dL (75-110); POTASSIUM 3.6 mmol/L (3.6-5.0); TOTAL PROTEIN 7.1 g/dL (6.3-8.2)
--- NOTE | 2020-03-25 11:08 | RADIOLOGY REPORT (SQ) ---
EXAM DESCRIPTION: CT SOFT TISSUE NECK WITH IMAGES COMPLETED DATE/TIME: 03/25/2020 10:52 am REASON FOR STUDY: abscess to back of head COMPARISON: None. TECHNIQUE: Post IV contrasted scanning from skull base through lung apices with review of bone, soft tissue and lung windows. Reconstructed coronal and sagittal MPR images reviewed. All images stored on PACS. All CT scanners at this facility use dose modulation, iterative reconstruction, and/or weight based d osing when appropriate to reduce radiation dose to as low as reasonably achievable (ALARA). [facility]: Dose Right [facility]: CareDose [facility]: Dose Right [facility]: Teradose 4D [facility]: SellrBuyr Free [employer] [place] CONTRAST TYPE AND DOSE: contrast/concentration: Isovue 350.00 mmol/ml; Total Contrast Delivered: 30. 6 ml; Total Saline Delivered: 43.7 ml RENAL FUNCTION: BUN 19 creatinine 1.15. RADIATION DOSE: CT Rad equipment meets quality standard of care and radiation dose reduction techniq ues were employed. CTDIvol: 20.2 mGy. DLP: 681 mGy-cm. . LIMITATIONS: None. FINDINGS: SKULL BASE: Intact. MAJOR SALIVARY GLANDS: No solid or cystic masses. No inflammatory changes. LYMPHADENOPATHY: No adenopathy. MUCOSAL MASSES OR ASYMMETRY: No mucosal masses or asymmetry. LARYNX/CORDS: No abnormal findings. VASCULAR STRUCTURES: The major vessels are patent. LUNG APICES: Clear. BONES: Intact. THYROID: Normal size. No masses. PARANASAL SINUSES: Clear. OTHER: Skin thickening with mild streaky density in the subcutaneous fat of the posterior neck. IMPRESSION: MILD INFLAMMATORY CHANGES IN THE POSTERIOR SUBCUTANEOUS TISSUES OF THE NECK. NO ABSCESS . TECHNICAL DOCUMENTATION: JOB ID: [id number] Quality ID # [id number]: Final reports with documentation of one or more dose reduction techniques (e.g., Au tomated exposure control, adjustment of the mA and/or kV according to patient size, use of iterative reconstruction technique) 2010 [employer]- All Rights Reserved Reading location - IP/workstation name: [email or web address]
[2020-03-25] MEDS ORDERED: VANCOMYCIN HCL INJ 1000 MG VIAL IV ONE (11:36)
--- NOTE | 2020-03-25 11:42 | ER Document Report ---
Doctor's Note Notes: 03/25/20 11:38 This is a patient I was asked to see with midlevel provider. 44-year-old man followed by Dr. Benito with poorly controlled type 2 diabetes mellitus and obesity presenting now with several days history of swelling and pain posterior neck area. Primary provider has had him on clindamycin for the last 48 hours. Swelling is gone down slightly but patient still complains of a pressure sensation and came in was specifically requesting that we "eron this". He is not having any fever chills or vomiting. I reviewed the chart in detail. Brief examination at the bedside shows a nontoxic appearing very obese middle- age man who has 5.5 cm diameter area of slight fluctuance warmth and tenderness posterior cervical area at about C5 level. There is some overlying scaling and excoriation no drainage. Blood sugars 207. Patient is afebrile. Renal function is normal. CT of the neck suggested stranding but no clear-cut abscess. I would recommend that we do a sterile prep and drape and locally anesthetized the area and attempt aspiration with an 18-gauge needle. Patient would also benefit from a single dose of IV vancomycin and he may thereafter follow-up with primary care provider.
[2020-03-25 12:43] VITALS: BP 136/70
[2020-03-25] MEDS ORDERED: CEFTRIAXONE INJ 1000 MG VIAL IM ONE (12:46)
[2020-03-25] MEDS ORDERED: LIDOCAINE 1% INJ-PF (10 MG/ML) 30 ML SDV ONE (12:51)
== END 2020-03-25 13:01 | disposition home or self-care (01) ==
LOC: ER 03:45
DX: L08.9 Local infection of the skin and subcutaneous tissue, unspecified (principal); L02.91 Cutaneous abscess, unspecified; E11.65 Type 2 diabetes mellitus with hyperglycemia; E66.9 Obesity, unspecified; I10 Essential (primary) hypertension; R51 Headache; J45.909 Unspecified asthma, uncomplicated; G47.30 Sleep apnea, unspecified; Z79.899 Other long term (current) drug therapy; Z88.8 Allergy status to other drugs, medicaments and biological substances; Z91.018 Allergy to other foods
CPT/HCPCS: 10021; 99285; 96372; 36415; 85025; 80053; 70491; J3490; J0696

== ENCOUNTER → 2020-04-19 | Outpatient (CLI) | payer MEDICARE, MEDICAID ==
--- NOTE | 2020-04-19 12:53 | RADIOLOGY REPORT (SQ) ---
EXAM DESCRIPTION: MRI LT LOWER JOINT WITHOUT IMAGES COMPLETED DATE/TIME: 04/19/2020 12:34 pm REASON FOR STUDY: M25.562 PAIN IN LEFT KNEE M25.562 PAIN IN LEFT KNEE COMPARISON: None. TECHNIQUE: Leftknee images acquired and stored on PACS. Multiplanar images include fat sensitive se quences as T1, water sensitive sequences as FST2 or STIR, cartilage sensitive sequences as FSPD, and gradient echo sequences. LIMITATIONS: None. FINDINGS: JOINT AND BURSAE: Joint effusion. No popliteal cyst. BONE CORTEX AND MARROW: No alteration of signal to suggest marrow replacement. No worrisome bone lesi ons. No occult fracture. ACL: Intact. No degeneration or ganglion cyst. PCL: Intact. MCL: Second-degree tear of the medial collateral ligament. Periligamentous edema. LCL: Intact. No periligamentous edema or fluid. MEDIAL MENISCUS: Nondisplaced tear posterior strut of the medial meniscus. LATERAL MENISCUS: No tears. No abnormal signal. MEDIAL COMPARTMENT: Cartilage preserved. No bone bruises or reactive marrow edema. No osteophytes. LATERAL COMPARTMENT: Cartilage preserved. No bone bruises or reactive marrow edema. No osteophytes. PATELLA: No chondromalacia. No subchondral cysts. Medial and lateral retinacula intact. EXTENSOR MECHANISM: Intact. Quadriceps and patella tendons normal. SOFT TISSUES: Adjacent muscles and subcutaneous tissues normal. Normal flow void in popliteal artery and vein. OTHER: No other significant finding. IMPRESSION: Second-degree MCL tear. Nondisplaced tear posterior strut medial meniscus. Joint effusion. TECHNICAL DOCUMENTATION: JOB ID: [id number] 2010 [employer]- All Rights Reserved Reading location - IP/workstation name: [email or web address]
== END ==
LOC: RAD 11:20
PROVIDERS: ATTEND Internal Medicine
DX: S83.412A Sprain of medial collateral ligament of left knee, initial encounter (principal); S83.242A Other tear of medial meniscus, current injury, left knee, initial encounter; X58.XXXA Exposure to other specified factors, initial encounter; M25.462 Effusion, left knee; M25.562 Pain in left knee